=== PATIENT | female | born 1990 | race Hispanic/Latino ===

== ENCOUNTER 2019-11-25 09:43 | Emergency (ER) | payer MEDICAID ==
--- NOTE | 2019-11-25 14:43 | Emergency Department Report ---
ED Female HPI - General Chief complaint: Vaginal Bleeding Stated complaint: 6WKS PREG/BLEEDING/CRAMPING Time Seen by Provider: 11/25/19 13:57 Source: patient Mode of arrival: Ambulatory Limitations: No Limitations - History of Present Illness Initial comments: This is a 29-year-old female who presents to the emergency room with lower abdominal cramping and vaginal bleeding for 2 weeks. Last menstrual period 10/12/2019, . Patient states the bleeding initially started off as hematuria and progressed to mild bleeding which required use of menstrual period. Patient admits to taking a Plan B 2 weeks prior to diagnosis of . Patient states she found out she was on 11/10/2018 in attempts to get control. She denies urinary frequency, urgency, dysuria, vaginal discharge, back pain, lightheadedness, chest pain, shortness of breath, or palpitations. MD Complaint: vaginal bleeding Onset/Timin -: week(s) Location: suprapubic Radiation: non-radiating Severity: moderate Severity scale (0 -10): 4 Quality: cramping Consistency: constant Improves with: none Worsens with: none Are you Now?: Yes Last Menstrual Period: 10/12/19 EDC: 07/18/20 Associated Symptoms: vaginal bleeding, abdominal pain, hematuria. denies: vaginal discharge, nausea/vomiting, fever/chills, loss of appetite, seizure, shortness of breath, syncope, weakness - Related Data Sexually active: Yes : 1 Para: 0 A: 0 Allergies Allergy/AdvReac Type Severity Reaction Status Date / Time No Known Allergies Allergy Unverified 11/25/19 10:49 ED Review of Systems ROS: Stated complaint: 6WKS PREG/BLEEDING/CRAMPING Other details as noted in HPI Constitutional: denies: chills, fever Respiratory: denies: cough, shortness of breath, wheezing Cardiovascular: denies: chest pain, palpitations Gastrointestinal: abdominal pain, other. denies: nausea, diarrhea Genitourinary: hematuria, other (vaginal bleeding during ). denies: urgency, dysuria, discharge Musculoskeletal: denies: back pain, joint swelling, arthralgia Skin: denies: rash, lesions Neurological: denies: headache, weakness, paresthesias Psychiatric: denies: anxiety, depression ED Past Medical Hx - Past Medical History Previous Medical History?: No - Surgical History Past Surgical History?: No ED Physical Exam - General Limitations: No Limitations General appearance: alert, in no apparent distress, obese - Respiratory Respiratory exam: Present: normal lung sounds bilaterally. Absent: respiratory distress - Cardiovascular Cardiovascular Exam: Present: regular rate, normal rhythm. Absent: systolic murmur, diastolic murmur, rubs, gallop - GI/Abdominal GI/Abdominal exam: Present: soft, normal bowel sounds. Absent: distended, tenderness, guarding, rebound, rigid - Extremities Exam Extremities exam: Present: normal inspection - Back Exam Back exam: Absent: CVA tenderness (R), CVA tenderness (L) - Neurological Exam Neurological exam: Present: alert, oriented X3, normal gait - Psychiatric Psychiatric exam: Present: normal affect, normal mood - Skin Skin exam: Present: warm, dry, intact, normal color. Absent: rash ED Course Vital Signs 11/25/19 10:15 Temperature 97.8 F Pulse Rate 74 Respiratory 18 Rate Blood Pressure 125/74 O2 Sat by Pulse 100 Oximetry ED Medical Decision Making - Lab Data Result diagrams: 11/25/19 15:34 Lab Results 11/25/19 11/25/19 11/25/19 Range/Units 14:46 15:34 15:34 WBC 8.2 (4.5-11.0) K/mm3 RBC 3.98 (3.65-5.03) M/mm3 Hgb 12.8 (10.1-14.3) gm/dl Hct 36.0 (30.3-42.9) % MCV 91 (79-97) fl MCH 32 (28-32) pg MCHC 36 H (30-34) % RDW 13.3 (13.2-15.2) % Plt Count 212 (140-440) K/mm3 HCG, Quant 328.8 H (0-4) mIU/mL Urine Color Yellow (Yellow) Urine Turbidity Clear (Clear) Urine pH 7.0 (5.0-7.0) Ur Specific [place] 1.003 (1.003-1.030) Urine Protein <15 mg/dl (Negative) mg/dL Urine Glucose (UA) Neg (Negative) mg/dL Urine Ketones Neg (Negative) mg/dL Urine Blood Lg (Negative) Urine Nitrite Neg (Negative) Ur Reducing Substances Not Reportable Urine Bilirubin Neg (Negative) Urine Ictotest Not Reportable Urine Urobilinogen < 2.0 (<2.0) mg/dL Ur Leukocyte Esterase Neg (Negative) Urine WBC (Auto) 2.0 (0.0-6.0) /HPF Urine RBC (Auto) 18.0 (0.0-6.0) /HPF U Epithel Cells (Auto) 1.0 (0-13.0) /HPF Urine Bacteria (Auto) 2+ (Negative) /HPF Urine HCG, Qual Positive A (Negative) - Radiology Data Radiology results: report reviewed [facility]TRASOUND HISTORY: , vaginal bleeding, cramping. COMPARISON: None. TECHNIQUE: Transabdominal and transvaginal exam of the pelvis was performed. FINDINGS: Last menstrual period: 10/12/2019. This would equate to an estimated gestational age of 6 weeks and 2 days. The uterus measures up to 9.9 x 3.9 x 6.1 cm. The endometrial stripe is thickened measuring up to 17.4 mm. No evidence of intrauterine is identified. The right ovary measures 2.7 x 1.4 x 2 cm and contains a 1.1 cm benign-appearing cyst versus follicle. The left ovary measures 2.5 x 1.5 x 2.7 cm. No evidence of discrete left ovarian lesion. No free fluid within the visualized pelvis. IMPRESSION: No evidence of intrauterine . It is unclear if this is due to early , aborted , or ectopic . Recommend correlation with serial beta hCG and short follow-up pelvic ultrasound as clinically indicated. - Medical Decision Making This is a 29-year-old female who presents with vaginal bleeding and abdominal cramping with . Vitals are stable and patient in no acute distress. Labs and OB ultrasound obtained. No evidence of intrauterine . It is unclear if this is due to early , aborted , or ectopic . Recommend correlation with serial beta hCG and short follow-up pelvic ultrasound as clinically indicated. Instructed to have repeat hormone levels in 48 hours. Referral to [facility] for continued care. Given strict bed rest instructions. Patient discharged home. Critical care attestation.: If time is entered above; I have spent that time in minutes in the direct care of this critically ill patient, excluding procedure time. ED Disposition Clinical Impression: Vaginal bleeding during , Threatened Disposition: DC-01 TO HOME OR SELFCARE Is pt being admited?: No Condition: Stable Instructions: Threatened Miscarriage (ED) Additional Instructions: Have repeat of your blood hCG levels in 2 days. You hCG level was 328.8 on today's visit. Follow up with an [facility] or return to the emergency room for repeat labs in 2 days. I have provided a list of [facility] for follow-up in the referrals list below. Referrals: [facility] [Provider Group] - 3-5 Days [facility], [facility] [Provider Group] - 3-5 Days [facility] [Provider Group] - 3-5 Days Forms: Work/School Release Form(ED), Accompanied Note Time of Disposition: 17:58
[2019-11-25 16:11] LABS: Hemoglobin 12.8 gm/dl (10.1-14.3); Mean Corpuscular HGB Conc 36 % (30-34); Mean Corpuscular Volume 91 fl (79-97); Platelet Count 212 K/mm3 (140-440); Red Blood Count 3.98 M/mm3 (3.65-5.03); Red Cell Distribution Width 13.3 % (13.2-15.2)
--- NOTE | 2019-11-25 16:15 | Ultrasound Report ---
[facility]ST[facility] ULTRASOUND HISTORY: , vaginal bleeding, cramping. COMPARISON: None. TECHNIQUE: Transabdominal and transvaginal exam of the pelvis was performed. FINDINGS: Last menstrual period: 10/12/2019. This would equate to an estimated gestational age of 6 weeks and 2 days. The uterus measures up to 9.9 x 3.9 x 6.1 cm. The endometrial stripe is thickened measuring up to 17. 4 mm. No evidence of intrauterine is identified. The right ovary measures 2.7 x 1.4 x 2 cm and contains a 1.1 cm benign-appearing cyst versus follicle . The left ovary measures 2.5 x 1.5 x 2.7 cm. No evidence of discrete left ovarian lesion. No free fluid within the visualized pelvis. IMPRESSION: No evidence of intrauterine . It is unclear if this is due to early , aborted pregn ba, or ectopic . Recommend correlation with serial beta hCG and short follow-up pelvic ult rasound as clinically indicated. Signer Name: Chris Rushing MD Signed: 11/25/2019 4:11 PM Workstation Name: [id number]
[2019-11-25 17:45] LABS: Bacteria,Urine 2+ /HPF (Negative); Bilirubin,Urine NEG (Negative); Blood,Urine LG (Negative); Color,Urine Yellow (Yellow); Protein,Urine <15 mg/dL mg/dL (Negative); Urobilinogen,Urine < 2.0 mg/dL (<2.0)
[2019-11-25 17:46] LABS: HCG Qualitative,Urine Positive (Negative)
[2019-11-25 18:05] VITALS: BP 122/74
== END 2019-11-25 18:04 | disposition home or self-care (01) ==
LOC: ED 09:43
DX: O20.0 Threatened abortion (principal); O20.8 Other hemorrhage in early pregnancy; Z3A.01 Less than 8 weeks gestation of pregnancy
CPT/HCPCS: 36415; 76801; 76802; 76817; 81001; 81025; 84702; 85027

== ENCOUNTER 2022-04-27 14:45 | Inpatient (IN) | payer MEDICAID ==
[2022-04-27] MEDS ORDERED: LACTATED RINGERS 1,000 ML ONE (16:18)
[2022-04-27] MEDS ORDERED: miSOPROStol 200 MCG TAB PR PRN (16:23)
[2022-04-27] MEDS ORDERED: LIDOCAINE (2%) 20 MG/1 ML VIAL 20 ML MDV INFILTRATI ONE (16:23)
[2022-04-27] MEDS ORDERED: OXYTOCIN 10 UNIT/1 ML INJ IM PRN (16:23)
[2022-04-27] MEDS ORDERED: METHYLERGONOVINE MALEATE 0.2 MG/ML VIAL IM PRN (16:23)
[2022-04-27] MEDS ORDERED: LOPERAMIDE 2 MG CAP PO PRN (16:23)
[2022-04-27] MEDS ORDERED: TERBUTALINE 1 MG/1 ML INJ SUB-Q PRN (16:23)
[2022-04-27] MEDS ORDERED: ONDANSETRON 4 MG/2 ML INJ IV PRN (16:23)
[2022-04-27] MEDS ORDERED: CARBOPROST TROMETHAMINE 250 MCG/1 ML INJ IM PRN (16:23)
[2022-04-27] MEDS ORDERED: ePHEDrine SULFATE 50 MG/1 ML INJ IV PRN (16:23)
[2022-04-27] MEDS ORDERED: MINERAL OIL 30 ML ORAL LIQD PO PRN (16:23)
[2022-04-27] MEDS: LACTATED RINGERS 1,000 ML IV SCH (16:30)
--- NOTE | 2022-04-27 16:33 | History and Physical Report ---
History of Present Illness Date of examination: 04/27/22 Date of admission: 04/27/2022 Chief complaint: Presents for a scheduled induction of labor for morbid obesity and GDM A1 History of present illness: Early entry to care; co-managed with [facility] due morbid obesity and GDM. Past History Past Medical History: no pertinent history Past Surgical History: no surgical history Family/Genetic History: heart disease (PGF), hypertension (PGF) Social history: no significant social history, single - Obstetrical History Expected Date of Delivery: 05/06/22 Actual Gestation: 38 Week(s) 5 Day(s) : 2 Spontaneous Abortions: 1 Medications and Allergies Allergies Allergy/AdvReac Type Severity Reaction Status Date / Time No Known Allergies Allergy Unverified 11/25/19 10:49 Active Meds: Active Medications Carboprost Tromethamine (Carboprost Tromethamine 250 Mcg/1 Ml Inj) 250 mcg IM ONCE PRN PRN Reason: Uterine Bleeding Ephedrine Sulfate (Ephedrine Sulfate 50 Mg/1 Ml Inj) 10 mg IV Q2M PRN PRN Reason: Hypotension Lactated Ringer's (Lactated Ringers) 1,000 mls @ 125 mls/hr IV DIRECT BARRIE Oxytocin/Sodium Chloride (Pitocin/Ns 30 Unit/500ml) 30 units in 500 mls @ 40 mls/hr IV TITR BARRIE; Protocol Ampicillin Sodium (Ampicillin/Ns 2 Gm/100 Ml) 2 gm in 100 mls @ 100 mls/hr IV ONCE ONE; Protocol Stop: 04/27/22 17:22 Ampicillin Sodium (Ampicillin/Ns 1 Gm/50 Ml) 1 gm in 50 mls @ 100 mls/hr IV Q4H BARRIE; Protocol Lidocaine (Lidocaine (2%) 20 Mg/1 Ml Vial 20 Ml Mdv) 20 ml INFILTRATI ONCE ONE Stop: 04/27/22 16:24 Loperamide HCl (Loperamide 2 Mg Cap) 2 mg PO ONCE PRN PRN Reason: give with Hemabate Methylergonovine Maleate (Methylergonovine Maleate 0.2 Mg/Ml Vial) 0.2 mg IM ONCE PRN PRN Reason: Uterine Bleeding Mineral Oil (Mineral Oil 30 Ml Oral Liqd) 30 ml PO QHS PRN PRN Reason: Constipation Misoprostol (Misoprostol 200 Mcg Tab) 800 mcg HI ONCE PRN PRN Reason: Uterine Bleeding Misoprostol (Misoprostol 25 Mcg Tab) 25 mcg VAGINAL ONCE ONE Stop: 04/27/22 16:24 Ondansetron HCl (Ondansetron 4 Mg/2 Ml Inj) 4 mg IV Q8H PRN PRN Reason: Nausea And Vomiting Oxytocin (Oxytocin 10 Unit/1 Ml Inj) 10 unit IM ONCE PRN PRN Reason: Uterine Bleeding Terbutaline Sulfate (Terbutaline 1 Mg/1 Ml Inj) 0.25 mg SUB-Q ONCE PRN PRN Reason: Hyperstimulation/Hypertonicity Review of Systems All systems: negative - Vital Signs Vital signs: Vital Signs Pulse Pulse Ox 69 80 L 04/27/22 16:17 04/27/22 16:17 Temp Pulse Resp BP Pulse Ox 113 H 115/66 92 04/27/22 16:27 04/27/22 16:25 04/27/22 16:27 - Physical Exam Breasts: Positive: normal Cardiovascular: Regular rate Lungs: Positive: Clear to auscultation, Normal air movement Abdomen: Positive: normal appearance, soft, normal bowel sounds Genitourinary (Female): Positive: normal external genitalia, normal perenium Vagina: Positive: normal moisture Uterus: Positive: enlarged Anus/Rectum: Positive: normal perianal skin Extremities: Positive: normal - Obstetrical FHR: category 1 Uterine Contraction Monitor Mode: External Cervical Dilatation: 0.5 Cervical Effacement Percentage: 30 station: -4 Uterine Contraction Pattern: Irregular Uterine Tone Measurement Phase: Resting Uterine Contraction Intensity: Mild Results All other labs normal. Assessment and Plan A: IUP @ 38 5/7 Weeks Category I Tracing GDM A1 Morbid Maternal obesity GBS Positive P: Admit to L&D Per Routine Orders Accuchecks q 4 hours Cytotec 25mcg intravaginally q 4 hours GBS Prophylaxis
[2022-04-27] MEDS ORDERED: OXYTOCIN DRIP 30 UNITS/500 ML BAG IV SCH (17:00)
[2022-04-27] MEDS ORDERED: AMPICILLIN/NS 2 GM/100 ML 2 GM/100 ML BAG IV ONE (17:00)
[2022-04-27 17:20] LABS: Hemoglobin 11.5 gm/dl (10.1-14.3); Mean Corpuscular HGB Conc 35 % (30-34); Mean Corpuscular Volume 89 fl (79-97); Platelet Count 150 K/mm3 (140-440); Red Blood Count 3.73 M/mm3 (3.65-5.03); Red Cell Distribution Width 14.8 % (13.2-15.2)
[2022-04-27] MEDS: miSOPROStol 25 MCG TAB VG SCH (17:37)
[2022-04-27] MEDS ORDERED: CYCLOBENZAPRINE 10 MG TAB PO ONE (23:48)
[2022-04-28] MEDS: LACTATED RINGERS 1,000 ML IV SCH ×2 (00:23→14:55)
--- NOTE | 2022-04-28 01:32 | Ultrasound Report ---
ULTRASOUND OBSTETRIC INDICATION / CLINICAL INFORMATION: GESTATIONAL DM, MORBID OBESITY. Clinical Gestational Age (GA) in weeks, days: 38, 6 TECHNIQUE: Transabdominal. COMPARISON: None available. FINDINGS: Single intrauterine . Biparietal Diameter = 10.2 cm = 42, 0 weeks, days Head Circumference = 33.3 cm = 38, 0 weeks, days Abdominal Circumference = 32.7 cm = 36, 4 weeks, days Femur Length = 7.0 cm = 35, 6 weeks, days Average Ultrasound Age (AUA) = 38, 1 weeks, days Heart Rate: 115 beats per minute. Estimated Weight in grams (if calculated): 3135 Estimated Weight Growth Percentile (if calculated): 27 Position: cephalic. Placenta: Right lateral and free of the os. Amniotic Fluid Volume: normal Amniotic Fluid Index (JERMAIN) in cm (if calculated): 9.2. IMPRESSION: 1. Single, living intrauterine with estimated sonographic age of 38, 1 weeks, days. 2. No significant sonographic abnormality. Signer Name: Paulino Greene DO Signed: 04/28/2022 1:27 AM Workstation Name: [id number]
[2022-04-28] MEDS: AMPICILLIN/NS 1 GM/50 ML 1 GM/50 ML BAG IV SCH ×5 (05:17→15:03)
[2022-04-28] MEDS: miSOPROStol 25 MCG TAB VG SCH (05:18)
[2022-04-28] MEDS: ACETAMINOPHEN 500 MG TAB PO PRN (09:34)
[2022-04-28] MEDS: miSOPROStol 25 MCG TAB VG PRN (09:35)
--- NOTE | 2022-04-28 09:52 | Event Note ---
Date: 04/28/22 S: Here for induction of labor for GDM, obesity O: CAT I tracing, irregular contractions, cervix on last exam was -/-2 A: Induction of labor P: Will increase Cytotec to 50 MCG every 4 hrs as tolerated
[2022-04-28] MEDS ORDERED: DINOPROSTONE 10 MG VAG SUPP VG ONE (21:00)
[2022-04-29] MEDS: miSOPROStol 25 MCG TAB VG PRN (03:56)
[2022-04-29] MEDS: LACTATED RINGERS 1,000 ML IV SCH (03:59)
[2022-04-29] MEDS: ACETAMINOPHEN 500 MG TAB PO PRN (05:31)
[2022-04-29] MEDS ORDERED: BUTORPHANOL 2 MG/1 ML INJ IV PRN (09:28)
[2022-04-29] MEDS ORDERED: ACETAMINOPHEN 325 MG TAB PO PRN (09:28)
[2022-04-29] MEDS ORDERED: fentaNYL 100 MCG/2 ML INJ IV PRN (09:28)
--- NOTE | 2022-04-29 11:33 | Event Note ---
Date: 04/29/22 S: Feeling a few contractions O: VE /-3, CAT I tracing A: 39.0 weeks induction of labor P: Resume cytotec 50 MCG
[2022-04-29] MEDS: miSOPROStol 25 MCG TAB PO PRN ×2 (13:56→17:59)
[2022-04-29] MEDS: BUTORPHANOL 2 MG/1 ML INJ IV PRN (22:53)
[2022-04-29] MEDS ORDERED: DINOPROSTONE 10 MG VAG SUPP VG ONE (22:59)
--- NOTE | 2022-04-30 00:04 | Progress Note ---
Assessment and Plan A IUP @ 39 weeks GDM A1 -FSG wnl Morbid Obesity IOL - S/p cytotec and cervidil P Cervidil placed Anticipate Subjective - Subjective Date of service: 04/30/22 Patient reports: contractions Objective - Vital Signs Vital Signs: Vital Signs - 12hr 04/29/22 04/29/22 04/29/22 12:04 12:09 12:14 Temperature Pulse Rate 82 75 90 Respiratory Rate Blood Pressure O2 Sat by Pulse 100 100 93 Oximetry O2 Sat by Pulse Oximetry [ Bilateral] 04/29/22 04/29/22 04/29/22 12:19 12:24 12:29 Temperature Pulse Rate 82 90 74 Respiratory Rate Blood Pressure O2 Sat by Pulse 100 100 97 Oximetry O2 Sat by Pulse Oximetry [ Bilateral] 04/29/22 04/29/22 04/29/22 12:34 12:38 12:39 Temperature Pulse Rate 77 87 71 Respiratory Rate Blood Pressure O2 Sat by Pulse 100 92 100 Oximetry O2 Sat by Pulse Oximetry [ Bilateral] 04/29/22 04/29/22 04/29/22 13:13 13:14 13:18 Temperature Pulse Rate 65 66 Respiratory Rate Blood Pressure 115/60 O2 Sat by Pulse 76 L 76 L 100 Oximetry O2 Sat by Pulse Oximetry [ Bilateral] 04/29/22 04/29/22 04/29/22 13:23 13:28 13:33 Temperature Pulse Rate 70 70 76 Respiratory Rate Blood Pressure O2 Sat by Pulse 100 100 100 Oximetry O2 Sat by Pulse Oximetry [ Bilateral] 04/29/22 04/29/22 04/29/22 13:38 13:43 13:48 Temperature Pulse Rate 66 63 68 Respiratory Rate Blood Pressure O2 Sat by Pulse 99 100 99 Oximetry O2 Sat by Pulse Oximetry [ Bilateral] 04/29/22 04/29/22 04/29/22 13:53 13:58 14:03 Temperature Pulse Rate 60 77 62 Respiratory Rate Blood Pressure O2 Sat by Pulse 99 100 99 Oximetry O2 Sat by Pulse Oximetry [ Bilateral] 04/29/22 04/29/22 04/29/22 14:08 14:17 14:22 Temperature Pulse Rate 60 73 67 Respiratory Rate Blood Pressure O2 Sat by Pulse 99 100 100 Oximetry O2 Sat by Pulse Oximetry [ Bilateral] 07/02/22 07/02/22 07/02/22 14:24 14:27 14:32 Temperature Pulse Rate 79 68 77 Respiratory Rate Blood Pressure O2 Sat by Pulse 92 100 100 Oximetry O2 Sat by Pulse Oximetry [ Bilateral] 04/29/22 04/29/22 04/29/22 14:37 14:42 14:47 Temperature Pulse Rate 71 62 70 Respiratory Rate Blood Pressure O2 Sat by Pulse 100 100 100 Oximetry O2 Sat by Pulse Oximetry [ Bilateral] 04/29/22 04/29/22 04/29/22 14:52 14:57 15:02 Temperature Pulse Rate 61 65 85 Respiratory Rate Blood Pressure O2 Sat by Pulse 100 100 100 Oximetry O2 Sat by Pulse Oximetry [ Bilateral] 04/29/22 04/29/22 04/29/22 15:10 15:15 15:20 Temperature Pulse Rate 80 73 71 Respiratory Rate Blood Pressure O2 Sat by Pulse 100 99 100 Oximetry O2 Sat by Pulse Oximetry [ Bilateral] 04/29/22 04/29/22 04/29/22 15:25 15:30 15:34 Temperature Pulse Rate 69 69 Respiratory Rate Blood Pressure O2 Sat by Pulse 100 100 78 L Oximetry O2 Sat by Pulse Oximetry [ Bilateral] 04/29/22 04/29/22 04/29/22 15:35 15:40 15:45 Temperature Pulse Rate 59 L 65 58 L Respiratory Rate Blood Pressure O2 Sat by Pulse 100 97 100 Oximetry O2 Sat by Pulse Oximetry [ Bilateral] 04/29/22 04/29/22 04/29/22 15:50 15:55 15:57 Temperature Pulse Rate 60 54 L 67 Respiratory Rate Blood Pressure O2 Sat by Pulse 100 99 86 Oximetry O2 Sat by Pulse Oximetry [ Bilateral] 04/29/22 04/29/22 04/29/22 16:00 16:05 16:10 Temperature Pulse Rate 62 58 L 58 L Respiratory Rate Blood Pressure O2 Sat by Pulse 100 100 100 Oximetry O2 Sat by Pulse Oximetry [ Bilateral] 04/29/22 04/29/22 04/29/22 16:15 16:17 16:24 Temperature Pulse Rate 60 66 57 L Respiratory Rate Blood Pressure 116/56 O2 Sat by Pulse 100 90 Oximetry O2 Sat by Pulse Oximetry [ Bilateral] 04/29/22 04/29/22 04/29/22 16:29 16:34 16:39 Temperature Pulse Rate 66 65 68 Respiratory Rate Blood Pressure O2 Sat by Pulse 100 100 96 Oximetry O2 Sat by Pulse Oximetry [ Bilateral] 04/29/22 04/29/22 04/29/22 16:41 16:44 16:45 Temperature 98.1 F Pulse Rate 71 68 Respiratory 17 Rate Blood Pressure O2 Sat by Pulse 85 100 Oximetry O2 Sat by Pulse Oximetry [ Bilateral] 04/29/22 04/29/22 04/29/22 16:50 16:51 16:54 Temperature Pulse Rate 70 71 93 H Respiratory Rate Blood Pressure O2 Sat by Pulse 100 87 95 Oximetry O2 Sat by Pulse Oximetry [ Bilateral] 04/29/22 04/29/22 04/29/22 16:59 17:05 17:09 Temperature Pulse Rate 63 65 78 Respiratory Rate Blood Pressure O2 Sat by Pulse 100 100 100 Oximetry O2 Sat by Pulse Oximetry [ Bilateral] 04/29/22 04/29/22 04/29/22 17:15 17:20 17:24 Temperature Pulse Rate 73 66 70 Respiratory Rate Blood Pressure O2 Sat by Pulse 100 100 100 Oximetry O2 Sat by Pulse Oximetry [ Bilateral] 04/29/22 04/29/22 04/29/22 17:30 17:38 17:43 Temperature Pulse Rate 70 90 84 Respiratory Rate Blood Pressure O2 Sat by Pulse 100 85 100 Oximetry O2 Sat by Pulse Oximetry [ Bilateral] 04/29/22 04/29/22 04/29/22 17:47 17:53 17:58 Temperature Pulse Rate 74 66 79 Respiratory Rate Blood Pressure O2 Sat by Pulse 98 100 100 Oximetry O2 Sat by Pulse Oximetry [ Bilateral] 04/29/22 04/29/22 04/29/22 18:17 18:22 18:27 Temperature Pulse Rate 67 63 64 Respiratory Rate Blood Pressure O2 Sat by Pulse 100 100 100 Oximetry O2 Sat by Pulse Oximetry [ Bilateral] 04/29/22 04/29/22 04/29/22 18:32 18:37 18:42 Temperature Pulse Rate 67 63 69 Respiratory Rate Blood Pressure O2 Sat by Pulse 98 99 99 Oximetry O2 Sat by Pulse Oximetry [ Bilateral] 04/29/22 04/29/22 04/29/22 18:47 18:55 19:00 Temperature Pulse Rate 69 72 67 Respiratory Rate Blood Pressure O2 Sat by Pulse 100 100 97 Oximetry O2 Sat by Pulse Oximetry [ Bilateral] 07/02/22 07/02/22 07/02/22 19:05 19:10 19:13 Temperature Pulse Rate 62 75 Respiratory Rate Blood Pressure O2 Sat by Pulse 99 100 Oximetry O2 Sat by Pulse 100 Oximetry [ Bilateral] 04/29/22 04/29/22 04/29/22 19:15 19:18 19:20 Temperature Pulse Rate 64 59 L 67 Respiratory Rate Blood Pressure 122/78 O2 Sat by Pulse 100 100 Oximetry O2 Sat by Pulse Oximetry [ Bilateral] 04/29/22 04/29/22 04/29/22 19:25 19:30 19:31 Temperature Pulse Rate 59 L 68 66 Respiratory Rate Blood Pressure O2 Sat by Pulse 100 100 85 Oximetry O2 Sat by Pulse Oximetry [ Bilateral] 04/29/22 04/29/22 04/29/22 19:35 19:43 19:48 Temperature Pulse Rate 65 70 69 Respiratory Rate Blood Pressure O2 Sat by Pulse 100 98 100 Oximetry O2 Sat by Pulse Oximetry [ Bilateral] 04/29/22 04/29/22 04/29/22 19:53 19:58 19:59 Temperature Pulse Rate 67 64 79 Respiratory Rate Blood Pressure O2 Sat by Pulse 100 100 86 Oximetry O2 Sat by Pulse Oximetry [ Bilateral] 04/29/22 04/29/22 04/29/22 20:07 20:12 20:17 Temperature Pulse Rate 65 68 61 Respiratory Rate Blood Pressure O2 Sat by Pulse 92 99 80 L Oximetry O2 Sat by Pulse Oximetry [ Bilateral] 04/29/22 04/29/22 04/29/22 20:22 20:27 20:32 Temperature Pulse Rate 66 63 64 Respiratory Rate Blood Pressure O2 Sat by Pulse 100 100 100 Oximetry O2 Sat by Pulse Oximetry [ Bilateral] 04/29/22 04/29/22 04/29/22 20:37 20:47 20:52 Temperature Pulse Rate 65 69 88 Respiratory Rate Blood Pressure O2 Sat by Pulse 100 100 100 Oximetry O2 Sat by Pulse Oximetry [ Bilateral] 04/29/22 04/29/22 04/29/22 20:57 21:02 21:07 Temperature Pulse Rate 77 92 H 86 Respiratory Rate Blood Pressure O2 Sat by Pulse 100 99 100 Oximetry O2 Sat by Pulse Oximetry [ Bilateral] 04/29/22 04/29/22 04/29/22 21:12 21:17 21:22 Temperature Pulse Rate 59 L 77 75 Respiratory Rate Blood Pressure O2 Sat by Pulse 100 99 100 Oximetry O2 Sat by Pulse Oximetry [ Bilateral] 04/29/22 04/29/22 04/29/22 21:27 21:32 21:37 Temperature Pulse Rate 83 85 83 Respiratory Rate Blood Pressure O2 Sat by Pulse 100 99 100 Oximetry O2 Sat by Pulse Oximetry [ Bilateral] 04/29/22 04/29/22 04/29/22 21:42 21:47 21:52 Temperature Pulse Rate 77 93 H 86 Respiratory Rate Blood Pressure O2 Sat by Pulse 100 99 100 Oximetry O2 Sat by Pulse Oximetry [ Bilateral] 04/29/22 04/29/22 04/29/22 22:01 22:02 22:07 Temperature Pulse Rate 99 H 67 73 Respiratory Rate Blood Pressure O2 Sat by Pulse 94 100 100 Oximetry O2 Sat by Pulse Oximetry [ Bilateral] 04/29/22 04/29/22 04/29/22 22:12 22:17 22:18 Temperature Pulse Rate 68 70 75 Respiratory Rate Blood Pressure O2 Sat by Pulse 100 99 87 Oximetry O2 Sat by Pulse Oximetry [ Bilateral] 04/29/22 04/29/22 04/29/22 22:22 22:27 22:32 Temperature Pulse Rate 66 68 69 Respiratory Rate Blood Pressure O2 Sat by Pulse 100 100 100 Oximetry O2 Sat by Pulse Oximetry [ Bilateral] 04/29/22 04/29/22 04/29/22 22:37 22:42 22:47 Temperature Pulse Rate 63 67 73 Respiratory Rate Blood Pressure O2 Sat by Pulse 100 100 100 Oximetry O2 Sat by Pulse Oximetry [ Bilateral] 04/29/22 04/29/22 04/29/22 22:48 22:52 22:57 Temperature Pulse Rate 63 65 72 Respiratory Rate Blood Pressure O2 Sat by Pulse 93 100 98 Oximetry O2 Sat by Pulse Oximetry [ Bilateral] 04/29/22 04/29/22 04/29/22 23:02 23:07 23:12 Temperature Pulse Rate 78 70 72 Respiratory Rate Blood Pressure O2 Sat by Pulse 96 98 98 Oximetry O2 Sat by Pulse Oximetry [ Bilateral] 04/29/22 04/29/22 04/29/22 23:17 23:22 23:33 Temperature Pulse Rate 66 69 65 Respiratory Rate Blood Pressure O2 Sat by Pulse 98 98 98 Oximetry O2 Sat by Pulse Oximetry [ Bilateral] 04/29/22 04/29/22 04/29/22 23:38 23:43 23:48 Temperature Pulse Rate 58 L 48 L 57 L Respiratory Rate Blood Pressure O2 Sat by Pulse 97 99 98 Oximetry O2 Sat by Pulse Oximetry [ Bilateral] 04/29/22 04/29/22 23:53 23:58 Temperature Pulse Rate 60 59 L Respiratory Rate Blood Pressure O2 Sat by Pulse 98 99 Oximetry O2 Sat by Pulse Oximetry [ Bilateral] - Exam FHR: category 1 Uterine Contraction Monitor Mode: External Cervical Dilatation: 1 Cervical Effacement Percentage: 0 (Thick) station: high Uterine Contraction Pattern: Irregular - Labs Labs: Abnormal Labs 04/27/22 04/29/22 04/29/22 16:30 10:07 20:53 MCHC 35 H POC Glucose 112 H 65 L Laboratory Results - last 24 hr 04/29/22 04/29/22 04/29/22 00:12 05:41 10:07 POC Glucose 88 82 112 H 04/29/22 04/29/22 15:06 20:53 POC Glucose 70 65 L
[2022-04-30] MEDS ORDERED: ZOLPIDEM 5 MG TAB PO ONE (01:44)
[2022-04-30] MEDS: BUTORPHANOL 2 MG/1 ML INJ IV PRN (03:58)
[2022-04-30 09:48] VITALS: BP 107/62
--- NOTE | 2022-04-30 10:39 | Event Note ---
Date: 04/30/22 S: Having a few contractions, but they have slowed down O: Reactive NST, Cervix 1/ long/-3, Irregular contractions She has had 6 doses of cytotec and one cervadil with poor response. A: 39 weeks with GDM, obesity P: Discussed with her and her regarding stopping the induction due to poor response to induction agents. She and her baby are stable and the induction will be rescheduled for May 07. Labor precautions given. F/U in office on Dr. Alcocer agreed with plan of care.
--- NOTE | 2022-04-30 10:44 | Discharge Summary ---
Providers - Providers Date of Admission: 04/29/22 09:34 Date of discharge: 04/30/22 Attending physician: SALOMÓN BARCLAY Primary care physician: SALOMÓN BARCLAY Hospitalization Reason for admission: induction of labor, other Delivery: other (induction stopped and rescheduled for May 08) Discharge diagnosis: other (39 weeks- induction stopped and rescheduled) Hospital course: See Progress note Disposition: HOME / SELF CARE / HOMELESS Plan - Provider Discharge Summary Activity: routine Diet: other (diabetic diet) Additional instructions: [] Smoking cessation referral if applicable(refer to patient education folder for contact #) [] Refer to [facility]'s [facility] Booklet Call your doctor immediately for: * Fever > 100.5 * Heavy vaginal bleeding ( >1 pad per hour) * Severe persistent headache * Shortness of breath * Reddened, hot, painful area to leg or breast * Drainage or odor from incision. * Keep incision clean and dry at all times and follow doctor's instructions regarding bathing/showering - Follow up plan Follow up: SALOMÓN BARCLAY MD [Primary Care Provider] - 05/04/22
== END 2022-04-30 11:00 | disposition home or self-care (01) | DRG 781 ==
LOC: TRG 14:45 → LD 14:45 → TRG 04-29 09:34 → LD 04-29 09:34
PROVIDERS: ADMIT Obstetrics & Gynecology; ATTEND Obstetrics & Gynecology
PROC: 3E0P7VZ Introduction of Hormone into Female Reproductive, Via Natural or Artificial Opening (ICD-10-PCS; principal; 2022-04-29)
DX: O24.419 Gestational diabetes mellitus in pregnancy, unspecified control (principal); E66.01 Morbid (severe) obesity due to excess calories; Z3A.38 38 weeks gestation of pregnancy; O99.820 Streptococcus B carrier state complicating pregnancy; O99.213 Obesity complicating pregnancy, third trimester; Z20.822 Contact with and (suspected) exposure to COVID-19
CPT/HCPCS: 36415; 59200; 76816; 82962; 83036; 85014; 85018; 85027; 86850; 86900; 86901; 96360; 96372; G0378; J0290; J0595; J7120

== ENCOUNTER 2022-05-07 20:19 | Inpatient (IN) | payer MEDICAID ==
[2022-05-07] MEDS ORDERED: CARBOPROST TROMETHAMINE 250 MCG/1 ML INJ IM PRN (21:26)
[2022-05-07] MEDS ORDERED: miSOPROStol 200 MCG TAB PR PRN (21:26)
[2022-05-07] MEDS ORDERED: ePHEDrine SULFATE 50 MG/1 ML INJ IV PRN (21:26)
[2022-05-07] MEDS ORDERED: MINERAL OIL 30 ML ORAL LIQD PO PRN (21:26)
[2022-05-07] MEDS ORDERED: LIDOCAINE (2%) 20 MG/1 ML VIAL 20 ML MDV INFILTRATI ONE (21:26)
[2022-05-07] MEDS ORDERED: LOPERAMIDE 2 MG CAP PO PRN (21:26)
[2022-05-07] MEDS ORDERED: ONDANSETRON 4 MG/2 ML INJ IV PRN (21:26)
[2022-05-07] MEDS ORDERED: OXYTOCIN 10 UNIT/1 ML INJ IM PRN (21:26)
[2022-05-07] MEDS ORDERED: TERBUTALINE 1 MG/1 ML INJ SUB-Q PRN (21:26)
[2022-05-07] MEDS ORDERED: ACETAMINOPHEN 325 MG TAB PO PRN (21:26)
[2022-05-07] MEDS ORDERED: METHYLERGONOVINE MALEATE 0.2 MG/ML VIAL IM PRN (21:26)
[2022-05-07] MEDS ORDERED: BUTORPHANOL 2 MG/1 ML INJ IV PRN (21:26)
[2022-05-07] MEDS ORDERED: OXYTOCIN DRIP 30 UNITS/500 ML BAG IV SCH ×2 (22:00)
[2022-05-07] MEDS ORDERED: DINOPROSTONE 10 MG VAG SUPP VG ONE (22:15)
[2022-05-07 22:32] LABS: Hematocrit 34.3 % (30.3-42.9); Hemoglobin 11.3 gm/dl (10.1-14.3); Mean Corpuscular HGB Conc 33 % (30-34); Mean Corpuscular Volume 90 fl (79-97); Platelet Count 154 K/mm3 (140-440); Red Cell Distribution Width 15.3 % (13.2-15.2)
[2022-05-07] MEDS: LACTATED RINGERS 1,000 ML IV SCH (23:12)
[2022-05-08] MEDS ORDERED: AMPICILLIN/NS 1 GM/50 ML 1 GM/50 ML BAG IV SCH (02:00)
--- NOTE | 2022-05-08 13:14 | Ultrasound Report ---
ULTRASOUND OBSTETRIC LIMITED INDICATION / CLINICAL INFORMATION: presentation. Clinical Gestational Age (GA) in weeks, days: 40, 2 TECHNIQUE: Transabdominal. COMPARISON: None available. FINDINGS: HEART RATE (beats per minute): 116 PRESENTATION: Cephalic. ADDITIONAL FINDINGS: None. IMPRESSION: 1. No significant abnormality. Signer Name: Paulino Greene DO Signed: 05/08/2022 1:09 PM Workstation Name: [id number]
[2022-05-08] MEDS: miSOPROStol 25 MCG TAB PO SCH ×3 (14:20→22:19)
[2022-05-08] MEDS: LACTATED RINGERS 1,000 ML IV SCH (18:10)
--- NOTE | 2022-05-08 19:13 | Progress Note ---
Assessment and Plan A: HD2@40.21WK GESTATION IOL FOR GDM, MORBID OBESITY CAT 1 TRACING GBS POSITIVE CERVIDIL REMOVED BY CNM @1010 P: CONTINUE RAFAELA /EFM MONITORING START CYTOTEC SL Q4HR [id number] CONTINUE BS MONITORING Subjective - Subjective Date of service: 05/08/22 (1010) Principal diagnosis: GDM, MO, GBS POS Patient reports: new complaints, movement normal Objective - Vital Signs Vital Signs: Vital Signs - 12hr 05/08/22 05/08/22 05/08/22 06:51 06:56 07:01 Pulse Rate 74 83 66 Blood Pressure O2 Sat by Pulse 98 100 99 Oximetry O2 Sat by Pulse Oximetry [ Posterior Bilateral Throughout] 05/08/22 05/08/22 05/08/22 07:06 07:11 07:14 Pulse Rate 71 72 68 Blood Pressure 111/71 O2 Sat by Pulse 100 99 Oximetry O2 Sat by Pulse Oximetry [ Posterior Bilateral Throughout] 05/08/22 05/08/22 05/08/22 07:16 07:21 07:26 Pulse Rate 63 63 70 Blood Pressure O2 Sat by Pulse 100 99 99 Oximetry O2 Sat by Pulse Oximetry [ Posterior Bilateral Throughout] 05/08/22 05/08/22 05/08/22 07:31 07:36 07:41 Pulse Rate 63 63 69 Blood Pressure O2 Sat by Pulse 99 98 99 Oximetry O2 Sat by Pulse Oximetry [ Posterior Bilateral Throughout] 05/08/22 05/08/22 05/08/22 07:46 07:51 07:56 Pulse Rate 56 L 62 59 L Blood Pressure O2 Sat by Pulse 99 98 99 Oximetry O2 Sat by Pulse Oximetry [ Posterior Bilateral Throughout] 05/08/22 05/08/22 05/08/22 08:01 08:06 08:10 Pulse Rate 91 H 78 Blood Pressure O2 Sat by Pulse 98 99 Oximetry O2 Sat by Pulse 98 Oximetry [ Posterior Bilateral Throughout] 05/08/22 05/08/22 05/08/22 08:11 08:13 08:16 Pulse Rate 83 64 83 Blood Pressure 123/74 O2 Sat by Pulse 99 100 Oximetry O2 Sat by Pulse Oximetry [ Posterior Bilateral Throughout] 05/08/22 05/08/22 05/08/22 08:21 08:26 08:31 Pulse Rate 67 74 69 Blood Pressure O2 Sat by Pulse 99 100 100 Oximetry O2 Sat by Pulse Oximetry [ Posterior Bilateral Throughout] 05/08/22 05/08/22 05/08/22 08:36 08:41 08:46 Pulse Rate 79 69 68 Blood Pressure O2 Sat by Pulse 100 99 100 Oximetry O2 Sat by Pulse Oximetry [ Posterior Bilateral Throughout] 05/08/22 05/08/22 05/08/22 08:51 08:56 09:01 Pulse Rate 71 73 71 Blood Pressure O2 Sat by Pulse 100 100 100 Oximetry O2 Sat by Pulse Oximetry [ Posterior Bilateral Throughout] 05/08/22 05/08/22 05/08/22 09:06 09:11 09:15 Pulse Rate 67 71 64 Blood Pressure 123/68 O2 Sat by Pulse 99 100 Oximetry O2 Sat by Pulse Oximetry [ Posterior Bilateral Throughout] 05/08/22 05/08/22 05/08/22 09:16 09:21 09:26 Pulse Rate 69 69 72 Blood Pressure O2 Sat by Pulse 100 100 100 Oximetry O2 Sat by Pulse Oximetry [ Posterior Bilateral Throughout] 05/08/22 05/08/22 05/08/22 09:31 09:36 09:41 Pulse Rate 82 84 73 Blood Pressure O2 Sat by Pulse 100 100 100 Oximetry O2 Sat by Pulse Oximetry [ Posterior Bilateral Throughout] 05/08/22 05/08/22 05/08/22 09:46 09:51 09:56 Pulse Rate 77 71 81 Blood Pressure O2 Sat by Pulse 99 99 99 Oximetry O2 Sat by Pulse Oximetry [ Posterior Bilateral Throughout] 05/08/22 05/08/22 05/08/22 10:05 10:10 10:14 Pulse Rate 92 H 85 73 Blood Pressure 123/74 O2 Sat by Pulse 100 100 Oximetry O2 Sat by Pulse Oximetry [ Posterior Bilateral Throughout] 05/08/22 05/08/22 05/08/22 10:15 12:36 12:37 Pulse Rate 75 146 H Blood Pressure O2 Sat by Pulse 100 87 83 L Oximetry O2 Sat by Pulse Oximetry [ Posterior Bilateral Throughout] 05/08/22 05/08/22 05/08/22 12:38 12:41 12:46 Pulse Rate 75 83 72 Blood Pressure 106/55 O2 Sat by Pulse 100 99 Oximetry O2 Sat by Pulse Oximetry [ Posterior Bilateral Throughout] 05/08/22 05/08/22 05/08/22 12:51 12:56 13:01 Pulse Rate 87 78 82 Blood Pressure O2 Sat by Pulse 98 99 100 Oximetry O2 Sat by Pulse Oximetry [ Posterior Bilateral Throughout] 05/08/22 05/08/22 05/08/22 13:06 13:11 13:20 Pulse Rate 76 73 88 Blood Pressure O2 Sat by Pulse 100 98 100 Oximetry O2 Sat by Pulse Oximetry [ Posterior Bilateral Throughout] 05/08/22 05/08/22 05/08/22 13:25 13:30 13:35 Pulse Rate 84 67 73 Blood Pressure O2 Sat by Pulse 100 100 100 Oximetry O2 Sat by Pulse Oximetry [ Posterior Bilateral Throughout] 05/08/22 05/08/22 05/08/22 13:38 13:40 13:45 Pulse Rate 70 69 70 Blood Pressure 104/57 O2 Sat by Pulse 100 100 Oximetry O2 Sat by Pulse Oximetry [ Posterior Bilateral Throughout] 05/08/22 05/08/22 05/08/22 13:50 13:55 14:00 Pulse Rate 74 71 64 Blood Pressure O2 Sat by Pulse 99 99 98 Oximetry O2 Sat by Pulse Oximetry [ Posterior Bilateral Throughout] 05/08/22 05/08/22 05/08/22 14:05 14:10 14:15 Pulse Rate 66 70 64 Blood Pressure O2 Sat by Pulse 97 97 99 Oximetry O2 Sat by Pulse Oximetry [ Posterior Bilateral Throughout] 05/08/22 05/08/22 05/08/22 14:20 14:25 14:30 Pulse Rate 84 76 72 Blood Pressure O2 Sat by Pulse 100 100 99 Oximetry O2 Sat by Pulse Oximetry [ Posterior Bilateral Throughout] 05/08/22 05/08/22 05/08/22 14:35 14:39 14:40 Pulse Rate 67 64 64 Blood Pressure 113/67 O2 Sat by Pulse 97 99 Oximetry O2 Sat by Pulse Oximetry [ Posterior Bilateral Throughout] 05/08/22 05/08/22 05/08/22 14:45 14:50 14:55 Pulse Rate 73 70 63 Blood Pressure O2 Sat by Pulse 98 98 98 Oximetry O2 Sat by Pulse Oximetry [ Posterior Bilateral Throughout] 05/08/22 05/08/22 05/08/22 15:00 15:05 15:10 Pulse Rate 63 67 71 Blood Pressure O2 Sat by Pulse 99 98 99 Oximetry O2 Sat by Pulse Oximetry [ Posterior Bilateral Throughout] 07/09/1905/08/22 05/08/22 15:19 15:24 15:25 Pulse Rate 74 76 71 Blood Pressure O2 Sat by Pulse 100 100 88 Oximetry O2 Sat by Pulse Oximetry [ Posterior Bilateral Throughout] 05/08/22 05/08/22 05/08/22 15:29 15:34 15:38 Pulse Rate 77 81 71 Blood Pressure 118/63 O2 Sat by Pulse 100 100 Oximetry O2 Sat by Pulse Oximetry [ Posterior Bilateral Throughout] 05/08/22 05/08/22 05/08/22 15:39 15:44 15:49 Pulse Rate 77 82 95 H Blood Pressure O2 Sat by Pulse 100 100 100 Oximetry O2 Sat by Pulse Oximetry [ Posterior Bilateral Throughout] 05/08/22 05/08/22 05/08/22 15:52 15:54 15:59 Pulse Rate 96 H 88 89 Blood Pressure O2 Sat by Pulse 71 L 94 100 Oximetry O2 Sat by Pulse Oximetry [ Posterior Bilateral Throughout] 05/08/22 05/08/22 05/08/22 16:02 16:04 16:09 Pulse Rate 96 H 107 H 90 Blood Pressure O2 Sat by Pulse 92 100 100 Oximetry O2 Sat by Pulse Oximetry [ Posterior Bilateral Throughout] 05/08/22 05/08/22 05/08/22 16:14 16:19 16:24 Pulse Rate 89 116 H 108 H Blood Pressure O2 Sat by Pulse 98 98 98 Oximetry O2 Sat by Pulse Oximetry [ Posterior Bilateral Throughout] 05/08/22 05/08/22 05/08/22 16:33 16:38 16:43 Pulse Rate 96 H 89 80 Blood Pressure 124/72 O2 Sat by Pulse 100 100 100 Oximetry O2 Sat by Pulse Oximetry [ Posterior Bilateral Throughout] 05/08/22 05/08/22 05/08/22 16:48 16:53 16:58 Pulse Rate 82 80 69 Blood Pressure O2 Sat by Pulse 100 100 99 Oximetry O2 Sat by Pulse Oximetry [ Posterior Bilateral Throughout] 05/08/22 05/08/22 05/08/22 17:03 17:08 17:13 Pulse Rate 75 73 84 Blood Pressure O2 Sat by Pulse 100 100 100 Oximetry O2 Sat by Pulse Oximetry [ Posterior Bilateral Throughout] 05/08/22 05/08/22 05/08/22 17:18 17:23 17:28 Pulse Rate 72 78 84 Blood Pressure O2 Sat by Pulse 100 100 100 Oximetry O2 Sat by Pulse Oximetry [ Posterior Bilateral Throughout] 05/08/22 05/08/22 05/08/22 17:33 17:38 17:42 Pulse Rate 93 H 80 84 Blood Pressure 118/75 O2 Sat by Pulse 100 100 Oximetry O2 Sat by Pulse Oximetry [ Posterior Bilateral Throughout] 05/08/22 05/08/22 05/08/22 17:47 17:52 17:57 Pulse Rate 89 99 H 87 Blood Pressure O2 Sat by Pulse 100 100 100 Oximetry O2 Sat by Pulse Oximetry [ Posterior Bilateral Throughout] 05/08/22 05/08/22 05/08/22 18:02 18:07 18:12 Pulse Rate 88 100 H 86 Blood Pressure O2 Sat by Pulse 100 98 99 Oximetry O2 Sat by Pulse Oximetry [ Posterior Bilateral Throughout] 05/08/22 05/08/22 05/08/22 18:17 18:22 18:27 Pulse Rate 73 70 55 L Blood Pressure O2 Sat by Pulse 100 99 94 Oximetry O2 Sat by Pulse Oximetry [ Posterior Bilateral Throughout] 05/08/22 05/08/22 05/08/22 18:28 18:33 18:38 Pulse Rate 83 66 79 Blood Pressure 112/69 O2 Sat by Pulse 99 100 100 Oximetry O2 Sat by Pulse Oximetry [ Posterior Bilateral Throughout] 05/08/22 05/08/22 18:43 18:48 Pulse Rate 79 73 Blood Pressure O2 Sat by Pulse 100 100 Oximetry O2 Sat by Pulse Oximetry [ Posterior Bilateral Throughout] - Exam Breasts: deferred Cardiovascular: Regular rate Lungs: Clear to auscultation Abdomen: Present: normal appearance (OBESE) Vulva: both: normal FHR: category 1 Uterine Contraction Monitor Mode: External Cervical Dilatation: 0 Cervical Effacement Percentage: 50 station: -4 Uterine Contraction Frequency (min): MINIMAL TO NONE Uterine Contraction Pattern: Irregular Uterine Contraction Intensity: Mild Extremities: normal Deep Tendon Reflex Grade: Normal +2 - Labs Labs: Abnormal Labs 05/07/22 05/08/22 21:00 02:46 RDW 15.3 H POC Glucose 128 H Laboratory Results - last 24 hr 05/07/22 05/07/22 05/07/22 21:00 22:03 23:17 WBC 8.0 RBC 3.80 Hgb 11.3 Hct 34.3 MCV 90 MCH 30 MCHC 33 RDW 15.3 H Plt Count 154 POC Glucose 94 Blood Type B POSITIVE Antibody Screen Negative 05/08/22 05/08/22 05/08/22 02:46 02:58 07:01 WBC RBC Hgb Hct MCV MCH MCHC RDW Plt Count POC Glucose 128 H 86 89 Blood Type Antibody Screen - Results US- obstetric: pending ( POSITION)
--- NOTE | 2022-05-08 19:17 | Progress Note ---
Assessment and Plan A: D2@40.21WK GESTATION IOL FOR GDM, MORBID OBESITY CAT 1 TRACING GBS POSITIVE P: CONTINUE CYTOTEC INDUCTION CONTINUE BS MONITORING FBS/2HR PP Subjective - Subjective Date of service: 05/08/22 (190) Principal diagnosis: GDM, MO, GBS POS Patient reports: new complaints, movement normal Objective - Vital Signs Vital Signs: Vital Signs - 12hr 05/08/22 05/08/22 05/08/22 07:14 07:16 07:21 Pulse Rate 68 63 63 Blood Pressure 111/71 O2 Sat by Pulse 100 99 Oximetry O2 Sat by Pulse Oximetry [ Posterior Bilateral Throughout] 05/08/22 05/08/22 05/08/22 07:26 07:31 07:36 Pulse Rate 70 63 63 Blood Pressure O2 Sat by Pulse 99 99 98 Oximetry O2 Sat by Pulse Oximetry [ Posterior Bilateral Throughout] 05/08/22 05/08/22 05/08/22 07:41 07:46 07:51 Pulse Rate 69 56 L 62 Blood Pressure O2 Sat by Pulse 99 99 98 Oximetry O2 Sat by Pulse Oximetry [ Posterior Bilateral Throughout] 05/08/22 05/08/22 05/08/22 07:56 08:01 08:06 Pulse Rate 59 L 91 H 78 Blood Pressure O2 Sat by Pulse 99 98 99 Oximetry O2 Sat by Pulse Oximetry [ Posterior Bilateral Throughout] 05/08/22 05/08/22 05/08/22 08:10 08:11 08:13 Pulse Rate 83 64 Blood Pressure 123/74 O2 Sat by Pulse 99 Oximetry O2 Sat by Pulse 98 Oximetry [ Posterior Bilateral Throughout] 05/08/22 05/08/22 05/08/22 08:16 08:21 08:26 Pulse Rate 83 67 74 Blood Pressure O2 Sat by Pulse 100 99 100 Oximetry O2 Sat by Pulse Oximetry [ Posterior Bilateral Throughout] 05/08/22 05/08/22 05/08/22 08:31 08:36 08:41 Pulse Rate 69 79 69 Blood Pressure O2 Sat by Pulse 100 100 99 Oximetry O2 Sat by Pulse Oximetry [ Posterior Bilateral Throughout] 05/08/22 05/08/22 05/08/22 08:46 08:51 08:56 Pulse Rate 68 71 73 Blood Pressure O2 Sat by Pulse 100 100 100 Oximetry O2 Sat by Pulse Oximetry [ Posterior Bilateral Throughout] 0705/08/22 05/08/22 09:01 09:06 09:11 Pulse Rate 71 67 71 Blood Pressure O2 Sat by Pulse 100 99 100 Oximetry O2 Sat by Pulse Oximetry [ Posterior Bilateral Throughout] 05/08/22 05/08/22 05/08/22 09:15 09:16 09:21 Pulse Rate 64 69 69 Blood Pressure 123/68 O2 Sat by Pulse 100 100 Oximetry O2 Sat by Pulse Oximetry [ Posterior Bilateral Throughout] 05/08/22 05/08/22 05/08/22 09:26 09:31 09:36 Pulse Rate 72 82 84 Blood Pressure O2 Sat by Pulse 100 100 100 Oximetry O2 Sat by Pulse Oximetry [ Posterior Bilateral Throughout] 05/08/22 05/08/22 05/08/22 09:41 09:46 09:51 Pulse Rate 73 77 71 Blood Pressure O2 Sat by Pulse 100 99 99 Oximetry O2 Sat by Pulse Oximetry [ Posterior Bilateral Throughout] 05/08/22 05/08/22 05/08/22 09:56 10:05 10:10 Pulse Rate 81 92 H 85 Blood Pressure O2 Sat by Pulse 99 100 100 Oximetry O2 Sat by Pulse Oximetry [ Posterior Bilateral Throughout] 05/08/22 05/08/22 05/08/22 10:14 10:15 12:36 Pulse Rate 73 75 Blood Pressure 123/74 O2 Sat by Pulse 100 87 Oximetry O2 Sat by Pulse Oximetry [ Posterior Bilateral Throughout] 05/08/22 05/08/22 05/08/22 12:37 12:38 12:41 Pulse Rate 146 H 75 83 Blood Pressure 106/55 O2 Sat by Pulse 83 L 100 Oximetry O2 Sat by Pulse Oximetry [ Posterior Bilateral Throughout] 05/08/22 05/08/22 05/08/22 12:46 12:51 12:56 Pulse Rate 72 87 78 Blood Pressure O2 Sat by Pulse 99 98 99 Oximetry O2 Sat by Pulse Oximetry [ Posterior Bilateral Throughout] 05/08/22 05/08/22 05/08/22 13:01 13:06 13:11 Pulse Rate 82 76 73 Blood Pressure O2 Sat by Pulse 100 100 98 Oximetry O2 Sat by Pulse Oximetry [ Posterior Bilateral Throughout] 05/08/22 05/08/22 05/08/22 13:20 13:25 13:30 Pulse Rate 88 84 67 Blood Pressure O2 Sat by Pulse 100 100 100 Oximetry O2 Sat by Pulse Oximetry [ Posterior Bilateral Throughout] 05/08/22 05/08/22 05/08/22 13:35 13:38 13:40 Pulse Rate 73 70 69 Blood Pressure 104/57 O2 Sat by Pulse 100 100 Oximetry O2 Sat by Pulse Oximetry [ Posterior Bilateral Throughout] 05/08/22 05/08/22 05/08/22 13:45 13:50 13:55 Pulse Rate 70 74 71 Blood Pressure O2 Sat by Pulse 100 99 99 Oximetry O2 Sat by Pulse Oximetry [ Posterior Bilateral Throughout] 05/08/22 05/08/22 05/08/22 14:00 14:05 14:10 Pulse Rate 64 66 70 Blood Pressure O2 Sat by Pulse 98 97 97 Oximetry O2 Sat by Pulse Oximetry [ Posterior Bilateral Throughout] 05/08/22 05/08/22 05/08/22 14:15 14:20 14:25 Pulse Rate 64 84 76 Blood Pressure O2 Sat by Pulse 99 100 100 Oximetry O2 Sat by Pulse Oximetry [ Posterior Bilateral Throughout] 05/08/22 05/08/22 05/08/22 14:30 14:35 14:39 Pulse Rate 72 67 64 Blood Pressure 113/67 O2 Sat by Pulse 99 97 Oximetry O2 Sat by Pulse Oximetry [ Posterior Bilateral Throughout] 05/08/22 05/08/22 05/08/22 14:40 14:45 14:50 Pulse Rate 64 73 70 Blood Pressure O2 Sat by Pulse 99 98 98 Oximetry O2 Sat by Pulse Oximetry [ Posterior Bilateral Throughout] 05/08/22 05/08/22 05/08/22 14:55 15:00 15:05 Pulse Rate 63 63 67 Blood Pressure O2 Sat by Pulse 98 99 98 Oximetry O2 Sat by Pulse Oximetry [ Posterior Bilateral Throughout] 05/08/22 05/08/22 05/08/22 15:10 15:19 15:24 Pulse Rate 71 74 76 Blood Pressure O2 Sat by Pulse 99 100 100 Oximetry O2 Sat by Pulse Oximetry [ Posterior Bilateral Throughout] 05/08/22 05/08/22 05/08/22 15:25 15:29 15:34 Pulse Rate 71 77 81 Blood Pressure O2 Sat by Pulse 88 100 100 Oximetry O2 Sat by Pulse Oximetry [ Posterior Bilateral Throughout] 05/08/22 05/08/22 05/08/22 15:38 15:39 15:44 Pulse Rate 71 77 82 Blood Pressure 118/63 O2 Sat by Pulse 100 100 Oximetry O2 Sat by Pulse Oximetry [ Posterior Bilateral Throughout] 05/08/22 05/08/22 05/08/22 15:49 15:52 15:54 Pulse Rate 95 H 96 H 88 Blood Pressure O2 Sat by Pulse 100 71 L 94 Oximetry O2 Sat by Pulse Oximetry [ Posterior Bilateral Throughout] 05/08/22 05/08/22 05/08/22 15:59 16:02 16:04 Pulse Rate 89 96 H 107 H Blood Pressure O2 Sat by Pulse 100 92 100 Oximetry O2 Sat by Pulse Oximetry [ Posterior Bilateral Throughout] 05/08/22 05/08/22 05/08/22 16:09 16:14 16:19 Pulse Rate 90 89 116 H Blood Pressure O2 Sat by Pulse 100 98 98 Oximetry O2 Sat by Pulse Oximetry [ Posterior Bilateral Throughout] 05/08/22 05/08/22 05/08/22 16:24 16:33 16:38 Pulse Rate 108 H 96 H 89 Blood Pressure 124/72 O2 Sat by Pulse 98 100 100 Oximetry O2 Sat by Pulse Oximetry [ Posterior Bilateral Throughout] 05/08/22 05/08/22 05/08/22 16:43 16:48 16:53 Pulse Rate 80 82 80 Blood Pressure O2 Sat by Pulse 100 100 100 Oximetry O2 Sat by Pulse Oximetry [ Posterior Bilateral Throughout] 05/08/22 05/08/22 05/08/22 16:58 17:03 17:08 Pulse Rate 69 75 73 Blood Pressure O2 Sat by Pulse 99 100 100 Oximetry O2 Sat by Pulse Oximetry [ Posterior Bilateral Throughout] 05/08/22 05/08/22 05/08/22 17:13 17:18 17:23 Pulse Rate 84 72 78 Blood Pressure O2 Sat by Pulse 100 100 100 Oximetry O2 Sat by Pulse Oximetry [ Posterior Bilateral Throughout] 05/08/22 05/08/22 05/08/22 17:28 17:33 17:38 Pulse Rate 84 93 H 80 Blood Pressure 118/75 O2 Sat by Pulse 100 100 Oximetry O2 Sat by Pulse Oximetry [ Posterior Bilateral Throughout] 05/08/22 05/08/22 05/08/22 17:42 17:47 17:52 Pulse Rate 84 89 99 H Blood Pressure O2 Sat by Pulse 100 100 100 Oximetry O2 Sat by Pulse Oximetry [ Posterior Bilateral Throughout] 05/08/22 05/08/22 05/08/22 17:57 18:02 18:07 Pulse Rate 87 88 100 H Blood Pressure O2 Sat by Pulse 100 100 98 Oximetry O2 Sat by Pulse Oximetry [ Posterior Bilateral Throughout] 05/08/22 05/08/22 05/08/22 18:12 18:17 18:22 Pulse Rate 86 73 70 Blood Pressure O2 Sat by Pulse 99 100 99 Oximetry O2 Sat by Pulse Oximetry [ Posterior Bilateral Throughout] 05/08/22 05/08/22 05/08/22 18:27 18:28 18:33 Pulse Rate 55 L 83 66 Blood Pressure O2 Sat by Pulse 94 99 100 Oximetry O2 Sat by Pulse Oximetry [ Posterior Bilateral Throughout] 05/08/22 05/08/22 05/08/22 18:38 18:43 18:48 Pulse Rate 79 79 73 Blood Pressure 112/69 O2 Sat by Pulse 100 100 100 Oximetry O2 Sat by Pulse Oximetry [ Posterior Bilateral Throughout] 05/08/22 05/08/22 05/08/22 18:53 18:58 19:03 Pulse Rate 73 86 67 Blood Pressure O2 Sat by Pulse 100 100 100 Oximetry O2 Sat by Pulse Oximetry [ Posterior Bilateral Throughout] 05/08/22 19:08 Pulse Rate 66 Blood Pressure O2 Sat by Pulse 100 Oximetry O2 Sat by Pulse Oximetry [ Posterior Bilateral Throughout] - Exam Vulva: both: normal FHR: category 1 (READJUSTED WIRELESS TOCO/EFM ) FHR comments: 140-145 Uterine Contraction Monitor Mode: External Cervical Dilatation: 1 Cervical Effacement Percentage: 50 station: -4 Uterine Contraction Frequency (min): 1-4 Uterine Contraction Pattern: Regular Uterine Contraction Intensity: Moderate Extremities: normal - Labs Labs: Abnormal Labs 05/07/22 05/08/22 21:00 02:46 RDW 15.3 H POC Glucose 128 H Laboratory Results - last 24 hr 05/07/22 05/07/22 05/07/22 21:00 22:03 23:17 WBC 8.0 RBC 3.80 Hgb 11.3 Hct 34.3 MCV 90 MCH 30 MCHC 33 RDW 15.3 H Plt Count 154 POC Glucose 94 Blood Type B POSITIVE Antibody Screen Negative 05/08/22 05/08/22 05/08/22 02:46 02:58 07:01 WBC RBC Hgb Hct MCV MCH MCHC RDW Plt Count POC Glucose 128 H 86 89 Blood Type Antibody Screen 05/08/22 19:00 WBC RBC Hgb Hct MCV MCH MCHC RDW Plt Count POC Glucose 102 Blood Type Antibody Screen - Results US- obstetric: report reviewed (CEPHALIC POSITION)
--- NOTE | 2022-05-08 21:39 | Ultrasound Report ---
ULTRASOUND OBSTETRIC INDICATION / CLINICAL INFORMATION: GDM, MO. Clinical Gestational Age (GA) in weeks, days: 40, 2 TECHNIQUE: Transabdominal. COMPARISON: 04/27/2022 FINDINGS: Single intrauterine . Biparietal Diameter = 9.6 cm = 39, 2 weeks, days Head Circumference = 33.8 cm = 38, 5 weeks, days Abdominal Circumference = 32.2 cm = 36, 1 weeks, days Femur Length = 5.4 cm = 28, 3 weeks, days Average Ultrasound Age (AUA) = 35, 5 weeks, days Heart Rate: 127 beats per minute. Estimated Weight in grams (if calculated): 2485 Estimated Weight Growth Percentile (if calculated): 1 Position: cephalic. Amniotic Fluid Volume: normal Amniotic Fluid Index (JERMAIN) in cm (if calculated): 9.4. IMPRESSION: 1. Single, living intrauterine with estimated sonographic age of 35, 5 weeks, days. Differe nce in dating may be secondary to provided femur length. There is noted heart rate of 127 be te rminated. 2. No other significant sonographic abnormality. Signer Name: Paulino Greene DO Signed: 05/08/2022 9:34 PM Workstation Name: [id number]
[2022-05-09] MEDS ORDERED: BUTORPHANOL 2 MG/1 ML INJ IV PRN (01:03)
[2022-05-09] MEDS ORDERED: PENICILLIN G POTASSIUM 5 MIL.UNITS in SODIUM CHLORIDE 0.9% 100 ML IV ONE (01:38)
[2022-05-09] MEDS ORDERED: miSOPROStol 25 MCG TAB PO SCH (02:00)
[2022-05-09] MEDS: LACTATED RINGERS 1,000 ML IV SCH (02:09)
[2022-05-09] MEDS: fentaNYL 100 MCG/2 ML INJ IV PRN ×2 (02:19→04:27)
[2022-05-09] MEDS ORDERED: ONDANSETRON 4 MG/2 ML INJ IV ONE (04:28)
[2022-05-09] MEDS ORDERED: PENICILLIN G POTASSIUM 2.5 MIL.UNITS in SODIUM CHLORIDE 0.9% 50 ML IV SCH (05:00)
[2022-05-09] MEDS ORDERED: fentaNYL-BUPIV 2 MCG/ML-0.125% 200 MCG/100 ML BAG EPIDURAL SCH ×2 (05:35→12:00)
[2022-05-09] MEDS ORDERED: ePHEDrine SULFATE 50 MG/1 ML INJ IV PRN (05:35)
[2022-05-09] MEDS ORDERED: NALOXONE 0.4 MG/1 ML INJ IV PRN ×3 (05:35→12:00)
[2022-05-09] MEDS ORDERED: BUPIVACAINE/PF (0.25%) 2.5 MG/ML 10 ML VIAL INFILTRATI ONE (05:40)
--- NOTE | 2022-05-09 06:14 | Progress Note ---
Labor Epidural - Labor Epidural Start Time: 05:46 Stop Time: 05:55 Performed by:: NICOLE AUGUSTIN Procedure: Epidural Requested for Labor Pain. H&P and PT Chart reviewed and consent obtained. Time out performed and the procedure was explained, all questions answered. Patient was placed in a sitting position with monitors applied. The PTs back was prepped and draped in usual sterile fashion. The Skin was localized with 3 mL of 1% lidocaine at L3-L4. A 17-gauge Touhy epidural needle was advanced to CRYSTAL with saline at 7 cm and no blood/CSF was noted via epidural needle. Epidural catheter was advanced to 12 cm. There was negative aspiration for blood and CSF in the catheter and negative response to a test dose of 3 ml 1.5% lidocaine w/ Epi and a sterile dressing was applied Patient tolerated the procedure well and there were no immediate complications noted.
--- NOTE | 2022-05-09 06:14 | Anesthesia Day of Surgery ---
Anesthesia Day of Surgery - Day of Surgery Patient Examined: Yes Patient H&P Reviewed: Yes Patient is NPO: Yes Beta Blockers: No Cardiac Clearance: No Pulmonary Clearance: No Fco's Test: N/A
--- NOTE | 2022-05-09 06:14 | Anesthesia Consultation ---
Anesthesia Consult and Med Hx Date of service: 05/09/22 - Airway Anesthetic Teeth Evaluation: Good ROM Head & Neck: Adequate Mental/Hyoid Distance: Adequate Mallampati Class: Class II Intubation Access Assessment: Probably Good - Pulmonary Exam CTA: Yes - Cardiac Exam Cardiac Exam: RRR - Pre-Operative Health Status ASA Pre-Surgery Classification: ASA2 Proposed Anesthetic Plan: Epidural - Pulmonary Hx Smoking: No Hx Asthma: No Hx Respiratory Symptoms: No SOB: No COPD: No Home Oxygen Therapy: No Hx Pneumonia: No Hx Sleep Apnea: No - Cardiovascular System Hx Hypertension: No Hx Coronary Artery Disease: No Hx Heart Attack/AMI: No Hx Angina: No Hx Percutaneous Transluminal Coronary Angioplasty (PTCA): No Hx Cardia Arrhythmia: No Hx Pacemaker: No Hx Internal Defibrillator: No Hx Valvular Heart Disease: No Hx Heart Murmur: No Hx Peripheral Vascular Disease: No - Central Nervous System Hx Neuromuscular Disorder: No Hx Seizures: No CVA: No Hx Back Pain: No Hx Psychiatric Problems: No - Gastrointestinal Hx Ulcer: No Hx Gastroesophageal Reflux Disease: No - Endocrine Hx Renal Disease: No Hx End Stage Renal Disease: No Hx Cirrhosis: No Hx Liver Disease: No Hx Insulin Dependent Diabetes: No Hx Non-Insulin Dependent Diabetes: No Hx Thyroid Disease: No Hx Hypothyroidism: No Hx Hyperthyroidism: No - Hematic Hx Anemia: No Hx Sickle Cell Disease: No - Other Systems Hx Alcohol Use: No Hx Substance Use: No Hx Cancer: No Hx Obesity: No
[2022-05-09] MEDS ORDERED: BICITRA ORAL LIQD 30ML ONE (08:46)
[2022-05-09] MEDS ORDERED: METOCLOPRAMIDE 10 MG/2 ML INJ ONE (08:46)
[2022-05-09] MEDS ORDERED: FAMOTIDINE 20 MG/2 ML INJ IV ONE ×2 (08:47→08:54)
[2022-05-09] MEDS ORDERED: ceFAZolin/Water 2 GM/20 ML 2 GM/20 ML SYRINGE IV ONE (08:47)
[2022-05-09] MEDS ORDERED: BUPIVACAINE/PF (0.25%) 2.5 MG/ML 30 ML VIAL INFILTRATI ONE ×2 (08:49→09:58)
[2022-05-09] MEDS ORDERED: METOCLOPRAMIDE 10 MG/2 ML INJ IV ONE (08:54)
[2022-05-09] MEDS ORDERED: BICITRA ORAL LIQD 30ML PO NR (08:54)
[2022-05-09] MEDS ORDERED: SODIUM CHLORIDE 0.9% 1000 ML 1,000 ML VG SCH (09:00)
[2022-05-09] MEDS ORDERED: fentaNYL 100 MCG/2 ML INJ ONE ×2 (09:29→10:36)
--- NOTE | 2022-05-09 09:40 | Progress Note ---
Assessment and Plan A: 40.3wks HD 3 IOL GDM, MO Epidural in place AROM clear ISE, IUPC in place FHR decelerations cat 2 tracing P: Continue /contraction monitoring BS wnl Amnio infusion for frequent deep decelerations Rn to continue routine interventions Subjective - Subjective Date of service: 05/09/22 (829) Principal diagnosis: GDM, MO, GBS POS Patient reports: new complaints, loss of fluid (clear), movement normal, contractions Objective - Vital Signs Vital Signs: Vital Signs - 12hr 05/08/22 05/08/22 05/08/22 21:38 21:40 21:49 Temperature Pulse Rate 77 75 48 L Respiratory Rate Blood Pressure 144/76 Blood Pressure [Left] O2 Sat by Pulse 99 94 Oximetry 05/08/22 05/08/22 05/08/22 21:54 21:59 22:04 Temperature Pulse Rate 74 74 61 Respiratory Rate Blood Pressure Blood Pressure [Left] O2 Sat by Pulse 100 99 100 Oximetry 05/08/22 05/08/22 05/08/22 22:09 22:14 22:19 Temperature Pulse Rate 62 84 64 Respiratory Rate Blood Pressure Blood Pressure [Left] O2 Sat by Pulse 100 100 100 Oximetry 05/08/22 05/08/22 05/08/22 22:24 22:29 22:34 Temperature Pulse Rate 63 74 64 Respiratory Rate Blood Pressure Blood Pressure [Left] O2 Sat by Pulse 100 100 100 Oximetry 05/08/22 05/08/22 05/08/22 22:38 22:39 22:44 Temperature Pulse Rate 60 60 58 L Respiratory Rate Blood Pressure 114/69 Blood Pressure [Left] O2 Sat by Pulse 99 99 Oximetry 05/08/22 05/08/22 05/08/22 22:49 22:54 22:59 Temperature Pulse Rate 60 60 58 L Respiratory Rate Blood Pressure Blood Pressure [Left] O2 Sat by Pulse 98 99 98 Oximetry 05/08/22 05/08/22 05/08/22 23:04 23:09 23:14 Temperature Pulse Rate 61 63 65 Respiratory Rate Blood Pressure Blood Pressure [Left] O2 Sat by Pulse 98 98 97 Oximetry 05/08/22 05/08/22 05/08/22 23:19 23:24 23:29 Temperature Pulse Rate 63 65 64 Respiratory Rate Blood Pressure Blood Pressure [Left] O2 Sat by Pulse 99 98 99 Oximetry 05/08/22 05/08/22 05/08/22 23:34 23:38 23:39 Temperature 97.9 F Pulse Rate 55 L 56 L 68 Respiratory 17 Rate Blood Pressure 116/71 Blood Pressure [Left] O2 Sat by Pulse 100 100 Oximetry 05/08/22 05/08/22 05/08/22 23:44 23:49 23:54 Temperature Pulse Rate 55 L 60 56 L Respiratory Rate Blood Pressure Blood Pressure [Left] O2 Sat by Pulse 100 99 100 Oximetry 05/08/22 05/09/22 05/09/22 23:59 00:04 00:09 Temperature Pulse Rate 61 61 59 L Respiratory Rate Blood Pressure Blood Pressure [Left] O2 Sat by Pulse 95 98 98 Oximetry 05/09/22 05/09/22 05/09/22 00:14 00:19 00:24 Temperature Pulse Rate 67 62 62 Respiratory Rate Blood Pressure Blood Pressure [Left] O2 Sat by Pulse 99 98 98 Oximetry 05/09/22 05/09/22 05/09/22 00:29 00:34 00:39 Temperature Pulse Rate 66 67 54 L Respiratory Rate Blood Pressure 118/69 Blood Pressure [Left] O2 Sat by Pulse 98 98 98 Oximetry 05/09/22 05/09/22 05/09/22 00:44 00:49 00:54 Temperature Pulse Rate 65 63 59 L Respiratory Rate Blood Pressure Blood Pressure [Left] O2 Sat by Pulse 98 98 99 Oximetry 05/09/22 05/09/22 05/09/22 01:03 01:08 01:13 Temperature Pulse Rate 72 66 61 Respiratory Rate Blood Pressure Blood Pressure [Left] O2 Sat by Pulse 94 100 99 Oximetry 05/09/22 05/09/22 05/09/22 01:18 01:23 01:28 Temperature Pulse Rate 73 65 63 Respiratory Rate Blood Pressure Blood Pressure [Left] O2 Sat by Pulse 99 99 98 Oximetry 05/09/22 05/09/22 05/09/22 01:33 01:38 01:40 Temperature Pulse Rate 74 76 Respiratory Rate Blood Pressure 120/65 Blood Pressure [Left] O2 Sat by Pulse 98 100 47 L Oximetry 05/09/22 05/09/22 05/09/22 01:43 01:48 01:53 Temperature Pulse Rate 72 72 62 Respiratory Rate Blood Pressure Blood Pressure [Left] O2 Sat by Pulse 100 100 100 Oximetry 05/09/22 05/09/22 05/09/22 01:58 02:03 02:08 Temperature Pulse Rate 61 72 64 Respiratory Rate Blood Pressure Blood Pressure [Left] O2 Sat by Pulse 100 100 100 Oximetry 05/09/22 05/09/22 05/09/22 02:13 02:18 02:24 Temperature Pulse Rate 76 85 91 H Respiratory Rate Blood Pressure Blood Pressure [Left] O2 Sat by Pulse 100 100 100 Oximetry 05/09/22 05/09/22 05/09/22 02:29 02:34 02:39 Temperature Pulse Rate 66 71 90 Respiratory Rate Blood Pressure Blood Pressure [Left] O2 Sat by Pulse 99 99 98 Oximetry 05/09/22 05/09/22 05/09/22 02:44 02:49 02:54 Temperature Pulse Rate 88 99 H 67 Respiratory Rate Blood Pressure Blood Pressure [Left] O2 Sat by Pulse 100 100 100 Oximetry 05/09/22 05/09/22 05/09/22 02:59 03:04 03:09 Temperature Pulse Rate 83 92 H 86 Respiratory Rate Blood Pressure Blood Pressure [Left] O2 Sat by Pulse 100 97 100 Oximetry 05/09/22 05/09/22 05/09/22 03:14 03:16 03:19 Temperature Pulse Rate 76 128 H 86 Respiratory Rate Blood Pressure Blood Pressure [Left] O2 Sat by Pulse 100 91 100 Oximetry 05/09/22 05/09/22 05/09/22 03:21 03:24 03:29 Temperature 97.9 F Pulse Rate 68 69 85 Respiratory 21 Rate Blood Pressure 127/66 Blood Pressure 127/66 [Left] O2 Sat by Pulse 100 100 100 Oximetry 05/09/22 05/09/22 05/09/22 03:33 03:34 03:39 Temperature Pulse Rate 80 76 97 H Respiratory Rate Blood Pressure Blood Pressure [Left] O2 Sat by Pulse 93 100 97 Oximetry 05/09/22 05/09/22 05/09/22 03:44 03:49 03:54 Temperature Pulse Rate 74 71 75 Respiratory Rate Blood Pressure Blood Pressure [Left] O2 Sat by Pulse 100 100 100 Oximetry 05/09/22 05/09/22 05/09/22 03:59 04:04 04:09 Temperature Pulse Rate 66 70 93 H Respiratory Rate Blood Pressure Blood Pressure [Left] O2 Sat by Pulse 100 100 99 Oximetry 05/09/22 05/09/22 05/09/22 05:39 05:41 05:44 Temperature Pulse Rate 85 69 80 Respiratory Rate Blood Pressure 115/58 Blood Pressure [Left] O2 Sat by Pulse 97 100 Oximetry 05/09/22 05/09/22 05/09/22 05:49 05:52 05:54 Temperature Pulse Rate 84 81 100 H Respiratory Rate Blood Pressure 119/59 Blood Pressure [Left] O2 Sat by Pulse 100 98 Oximetry 05/09/22 05/09/22 05/09/22 05:56 05:59 06:02 Temperature Pulse Rate 89 91 H 88 Respiratory Rate Blood Pressure 118/58 115/58 113/64 Blood Pressure [Left] O2 Sat by Pulse 100 Oximetry 05/09/22 05/09/22 05/09/22 06:04 06:05 06:08 Temperature Pulse Rate 112 H 109 H 98 H Respiratory Rate Blood Pressure 116/57 99/59 Blood Pressure [Left] O2 Sat by Pulse 100 Oximetry 05/09/22 05/09/22 05/09/22 06:09 06:13 06:14 Temperature Pulse Rate 103 H 114 H 111 H Respiratory Rate Blood Pressure 95/53 Blood Pressure [Left] O2 Sat by Pulse 100 100 Oximetry 05/09/22 05/09/22 05/09/22 06:18 06:19 06:23 Temperature Pulse Rate 122 H 113 H 114 H Respiratory Rate Blood Pressure 86/53 112/81 Blood Pressure [Left] O2 Sat by Pulse 100 Oximetry 05/09/22 05/09/22 05/09/22 06:24 06:29 06:34 Temperature Pulse Rate 105 H 102 H 96 H Respiratory Rate Blood Pressure 104/51 108/51 Blood Pressure [Left] O2 Sat by Pulse 100 100 100 Oximetry 05/09/22 05/09/22 05/09/22 06:39 06:43 06:44 Temperature Pulse Rate 112 H 121 H 90 Respiratory Rate Blood Pressure 100/55 101/51 Blood Pressure [Left] O2 Sat by Pulse 100 94 100 Oximetry 05/09/22 05/09/22 05/09/22 06:49 06:53 06:54 Temperature Pulse Rate 80 90 90 Respiratory Rate Blood Pressure 102/53 92/53 Blood Pressure [Left] O2 Sat by Pulse 100 100 Oximetry 05/09/22 05/09/22 05/09/22 06:58 06:59 07:04 Temperature Pulse Rate 82 113 H 78 Respiratory Rate Blood Pressure 96/54 96/55 Blood Pressure [Left] O2 Sat by Pulse 100 100 Oximetry 05/09/22 05/09/22 05/09/22 07:08 07:09 07:13 Temperature Pulse Rate 101 H 84 85 Respiratory Rate Blood Pressure 103/57 95/52 Blood Pressure [Left] O2 Sat by Pulse 100 Oximetry 05/09/22 05/09/22 05/09/22 07:14 07:18 07:19 Temperature Pulse Rate 105 H 89 85 Respiratory Rate Blood Pressure 102/51 Blood Pressure [Left] O2 Sat by Pulse 100 100 Oximetry 05/09/22 05/09/22 05/09/22 07:23 07:24 07:29 Temperature Pulse Rate 106 H 118 H 98 H Respiratory Rate Blood Pressure 109/55 108/59 Blood Pressure [Left] O2 Sat by Pulse 100 100 Oximetry 05/09/22 05/09/22 05/09/22 07:33 07:34 07:38 Temperature Pulse Rate 110 H 103 H 97 H Respiratory Rate Blood Pressure 99/52 81/52 Blood Pressure [Left] O2 Sat by Pulse 100 Oximetry 05/09/22 05/09/22 05/09/22 07:39 07:43 07:44 Temperature Pulse Rate 94 H 87 99 H Respiratory Rate Blood Pressure 91/53 Blood Pressure [Left] O2 Sat by Pulse 100 100 Oximetry 05/09/22 05/09/22 05/09/22 07:48 07:49 07:53 Temperature Pulse Rate 96 H 93 H 130 H Respiratory Rate Blood Pressure 98/55 119/67 Blood Pressure [Left] O2 Sat by Pulse 100 Oximetry 05/09/22 05/09/22 05/09/22 07:54 07:59 08:04 Temperature Pulse Rate 119 H 102 H 91 H Respiratory Rate Blood Pressure 122/62 105/51 Blood Pressure [Left] O2 Sat by Pulse 100 100 100 Oximetry 05/09/22 05/09/22 05/09/22 08:09 08:14 08:15 Temperature Pulse Rate 106 H 84 84 Respiratory Rate Blood Pressure 108/54 Blood Pressure [Left] O2 Sat by Pulse 100 100 Oximetry 05/09/22 05/09/22 05/09/22 08:18 08:19 08:24 Temperature Pulse Rate 80 98 H 97 H Respiratory Rate Blood Pressure 102/51 104/55 Blood Pressure [Left] O2 Sat by Pulse 100 100 Oximetry 05/09/22 05/09/22 05/09/22 08:29 08:30 08:33 Temperature Pulse Rate 85 90 82 Respiratory Rate Blood Pressure 122/47 113/61 Blood Pressure [Left] O2 Sat by Pulse 100 Oximetry 05/09/22 05/09/22 05/09/22 08:34 08:38 08:39 Temperature Pulse Rate 84 73 86 Respiratory Rate Blood Pressure 120/63 Blood Pressure [Left] O2 Sat by Pulse 100 100 Oximetry 05/09/22 05/09/22 05/09/22 08:43 08:44 08:52 Temperature Pulse Rate 85 93 H 99 H Respiratory Rate Blood Pressure 118/61 Blood Pressure [Left] O2 Sat by Pulse 100 100 Oximetry 05/09/22 05/09/22 05/09/22 08:57 09:02 09:07 Temperature Pulse Rate 101 H 116 H 110 H Respiratory Rate Blood Pressure Blood Pressure [Left] O2 Sat by Pulse 100 100 100 Oximetry 05/09/22 05/09/22 05/09/22 09:12 09:17 09:22 Temperature Pulse Rate 108 H 112 H 124 H Respiratory Rate Blood Pressure Blood Pressure [Left] O2 Sat by Pulse 100 100 100 Oximetry 05/09/22 05/09/22 09:27 09:32 Temperature Pulse Rate 132 H 122 H Respiratory Rate Blood Pressure Blood Pressure [Left] O2 Sat by Pulse 100 100 Oximetry - Exam Vulva: both: normal Uterus: Present: fundal height above umbilicus FHR: category 2 FHR comments: Internal ISE Uterine Contraction Monitor Mode: Internal Cervical Dilatation: 6 (stretchy, from machinical dilation) Cervical Effacement Percentage: 80 station: -3 Uterine Contraction Frequency (min): 3-6 - Labs Labs: Abnormal Labs 05/07/22 05/08/22 21:00 02:46 RDW 15.3 H POC Glucose 128 H Laboratory Results - last 24 hr 05/08/22 05/08/22 05/09/22 19:00 22:15 02:07 POC Glucose 102 83 83 05/09/22 09:00 POC Glucose 101
[2022-05-09] MEDS ORDERED: ceFAZolin/STERILE WATER 2 GM/20 ML SYRINGE IV ONE (09:41)
[2022-05-09] MEDS ORDERED: WATER FOR IRRIG STERILE 1,500 ML BOTTLE IR ONE (09:41)
[2022-05-09] MEDS ORDERED: SODIUM CHLORIDE 0.9% IRR 1,500 ML BOTTLE IR ONE (09:41)
[2022-05-09] MEDS ORDERED: PHENYLEPHRINE/NS 1,000 MCG/10 ML SYRINGE (OR USE) IV ONE (09:47)
--- NOTE | 2022-05-09 09:58 | Event Note ---
Date: 05/09/22 (0845) Patient still with deep variable decels both with and after contractions down to 60 bpm. Without contractions FHR recovers in 140's-160's. CAT 2 tracing noted with minimal variability. Ve: still the same 6-7/-3, Amnioinfusion to continue. Place on left side, right leg elevated on stirup and trendelenberg position to decrease compression. Variables Decels now down to 90's with contractions, moderate variability noted. Terbutaline given for uterine rest. [place] full charge bookkeeper to contact Dr. Figueredo for primary Csection.
[2022-05-09] MEDS ORDERED: ONDANSETRON 4 MG/2 ML INJ ONE (10:00)
[2022-05-09] MEDS ORDERED: HYDROmorphone 1 MG/1 ML INJ IV PRN ×2 (11:21)
[2022-05-09] MEDS ORDERED: MORPHINE 4 MG/1 ML INJ IV PRN ×2 (11:21→11:55)
--- NOTE | 2022-05-09 11:49 | Progress Note ---
Regional Anesthesia Block - Regional Anesthesia Block Start Time: 11:03 Stop Time: 11:12 Performed By:: NICOLE AUGUSTIN Procedure: During the pre-op interview the patient agreed to and signed a consent for a TAP block for post surgical pain management. After her C/S was completed a time out was performed prior to the start of the procedure. The Trans Abdominal Plane was identified bilaterally via ultrasound. The skin was prepped bilaterally with chlorhexidine and a 22g stimuplex needle was advanced to the area between the internal oblique muscle and the trans abdominal plane. Marcaine 0.25% 30mlwas injected under ultrasound guidance on the left and right side. Negative aspiration every 5mL, There was no change in the patients heart rate or rhythm and the patient tolerated the procedure well. No apparent complications were observed.
[2022-05-09] MEDS ORDERED: IBUPROFEN 600 MG TAB PO PRN (11:55)
[2022-05-09] MEDS ORDERED: PROMETHAZINE 25 MG RECT SUPP PR PRN ×2 (11:55→12:00)
[2022-05-09] MEDS ORDERED: MORPHINE 2 MG/1 ML INJ IV PRN (11:55)
[2022-05-09] MEDS ORDERED: LANOLIN/ZINC/DIMETHICONE (LANSINOH) 7 GM TP PRN (11:55)
[2022-05-09] MEDS ORDERED: WITCH HAZEL/ GLYCERIN PAD TP PRN (11:55)
[2022-05-09] MEDS ORDERED: KETOROLAC 30 MG/1 ML INJ IV PRN ×2 (11:55)
[2022-05-09] MEDS ORDERED: ONDANSETRON 4 MG/2 ML INJ IV PRN (12:00)
[2022-05-09] MEDS ORDERED: OXYTOCIN DRIP 30 UNITS/500 ML BAG IV SCH (12:00)
[2022-05-09] MEDS ORDERED: PROMETHAZINE 25 MG TAB PO PRN (12:00)
--- NOTE | 2022-05-09 12:09 | Event Note ---
Date: 05/09/22 Mother in Trendelenburg pos. Variables continuing. Os 6cm, 0 station, + caput. section ordered.
--- NOTE | 2022-05-09 12:14 | Operative Report ---
Operative Report Operative Report: Date of surgery: May 09, 2022 Preoperative diagnoses: 40 weeks 3 days gestation, gestational diabetes, morbid obesity, failed induction intolerance of labor Postoperative diagnoses: The same. Operation: Lower segment transverse delivery Surgeon:Maury Figueredo MD Manager Management: Sam Cheatham CRNA Anesthesia: Epidural block Quantitative blood loss: 1175 mL Complications: None Findings: There was a live baby girl and occiput posterior position, 1+ caput, weight 6 pounds 14 ounces, Apgars 8/9. The ovaries and fallopian tubes were grossly normal. The uterus was started with 6 peanut sized subserosal fibroids. Procedure in detail: The patient was taken to the operating room and given a spinal block. Patient was placed in the straight supine position and a Padron catheter was inserted. The patient was prepped in the abdomen. The drapes were placed. A timeout was done. With the go ahead from the piano sounding board matcher, a Pfannenstiel incision was made. This incision was carried across the subcutaneous layer to the fascia which was also divided transversely. The recti abdominis muscle flaps were stripped from the fascia using a combination of blunt and sharp dissections. The muscles were in the midline to gain access to the anterior parietal peritoneum which was divided after excluding any underlying viscera. The access to the peritoneal cavity was then widened by manual stretching. The bladder blade was applied. The utero vesicle peritoneal flap was divided transversely allowing the bladder to be displaced caudally. The uterine incision was placed in the lower segment transversely. The uterine incision was carried to the decidual layer. The uterine incision was extended on both sides using the bandage scissors. The amniotic sac was ruptured with clear fluid. The head was lifted out of the false maternal pelvis and delivered through the incision using fundal pressure. The airways were bulb suctioned beginning with the mouth. Continuing fundal pressure combined with traction on the mandibular processes of the jaw delivered the rest of the baby. The umbilical cord was double clamped and divided. The baby was carefully transferred to the pediatric team. The placenta was manually removed from the uterine cavity. The uterine cavity was explored and was empty of any placental remnants. The uterine incision was repaired in 2 layers with #1 Vicryl. The surgical line on the uterus was hemostatic. Blood and clots were cleared from the peritoneal cavity. The anterior parietal peritoneum was repaired with #1 Vicryl. The fascia was repaired with #1 Vicryl. The subcutaneous layer was made hemostatic using the Bovie before the skin was closed subcuticularly with 4-0 Vicryl. There were no complications. The quantitative blood loss was 1175 mL. All sponges and instrument counts were correct. Patient was safely transferred to the recovery room.
[2022-05-09] MEDS ORDERED: LACTATED RINGERS 1,000 ML ONE (16:26)
--- NOTE | 2022-05-09 16:29 | Post Anesthesia Evaluation ---
- Post Anesthesia Evaluation Patient Participated: Yes Airway Patent: Yes Stable Respiratory Function: Yes Nausea/Vomiting: No Temp > 96.8F: Yes Pain Manageable: Yes Adequeate Hydration: Yes Anesthesia Complications: No Block Receding Appropriately: Yes Patient on Ventilator: No
[2022-05-09] MEDS: ceFAZolin/NS 1 GM/50 ML 1 GM/50 ML BAG IV SCH (18:06)
[2022-05-09 23:19] LABS: Hematocrit 29.2 % (30.3-42.9); Hemoglobin 9.6 gm/dl (10.1-14.3)
[2022-05-10] MEDS: HYDROcodone/ACETAMINOPHEN 5-325 MG TAB PO PRN ×3 (00:04→12:19)
[2022-05-10] MEDS: ceFAZolin/NS 1 GM/50 ML 1 GM/50 ML BAG IV SCH (01:41)
[2022-05-10] MEDS: IBUPROFEN 800 MG TAB PO PRN ×3 (01:42→23:10)
[2022-05-10] MEDS ORDERED: ceFAZolin/NS 1 GM/50 ML 1 GM/50 ML BAG IV SCH (02:00)
[2022-05-10] MEDS: FERROUS SULFATE 325 MG TAB PO SCH (10:49)
--- NOTE | 2022-05-10 12:03 | Progress Note ---
Assessment and Plan A: POD #1 GDM A1 Maternal obesity Asymptomatic Anemia P: Follow Routine PostOp Orders Continue Accuchecks as ordered Continue FeSO4 as ordered Subjective - Subjective Date of service: 05/10/22 Principal diagnosis: GDM, MO, GBS POS Patient reports: appetite normal, voiding normally, pain well controlled, flatus, ambulating normally [place]: doing well Objective - Vital Signs Latest vital signs: Vital Signs Temp Pulse Resp BP BP Pulse Ox Pulse Ox 05/10/22 08:20 97.7 F 90 18 115/63 100 05/10/22 07:40 100 05/10/22 06:24 20 05/10/22 04:00 98.4 F 74 18 115/79 05/10/22 01:42 20 05/10/22 00:04 98.0 F 91 H 18 120/68 100 05/09/22 20:34 20 05/09/22 20:08 98.6 F 80 18 117/61 100 05/09/22 20:00 99 05/09/22 16:26 98.7 F 80 20 108/61 99 05/09/22 13:32 97.5 F L 98 H 16 149/78 100 05/09/22 13:28 98 05/09/22 12:30 95 H 18 118/63 100 05/09/22 12:15 111 H 17 126/73 99 Intake and Output 05/09/22 05/10/22 05/10/22 22:59 06:59 14:59 Intake Total 730 200 360 Output Total 1000 1400 400 Balance -270 -1200 -40 Intake: IV 50 ANCEF/NS 1 GM/50 ML 1 gm 50 In 50 ml @ 100 mls/hr IV Q8H [facility] Rx#:[id number] Oral 440 360 Intake, Free Water 240 200 Output: Urine 1000 1400 400 Indwelling Catheter 1000 Void 1400 400 Other: Total, Intake Amount 200 360 Total, Output Amount 1000 800 400 # Voids Indwelling Catheter 2,000 Void 1 2 - Exam Breasts: Present: normal Cardiovascular: Present: Regular rate Lungs: Present: Clear to auscultation, Normal air movement Abdomen: Present: normal appearance, soft, normal bowel sounds Uterus: Present: normal, firm, fundal height below umbilicus Extremities: Present: normal Incision: Present: dry, dressed - Labs Labs: Abnormal lab results 07/12/22 Range/Units 23:07 Hgb 9.6 L (10.1-14.3) gm/dl Hct 29.2 L (30.3-42.9) %
[2022-05-11] MEDS: IBUPROFEN 800 MG TAB PO PRN ×2 (06:20→14:15)
--- NOTE | 2022-05-11 11:56 | Progress Note ---
Assessment and Plan A: POD # 2 - stable P: Replace steri strips Discharge home today Discharge instructions given Subjective - Subjective Date of service: 05/11/22 Principal diagnosis: POD # 2 Patient reports: appetite normal : doing well Objective - Vital Signs Latest vital signs: Vital Signs Temp Pulse Resp BP BP Pulse Ox Pulse Ox 05/11/22 09:15 98 05/11/22 07:42 98.1 F 72 18 110/52 96 05/11/22 06:20 98 05/11/22 03:50 98 05/11/22 01:55 98 05/11/22 00:27 98.0 F 77 18 109/67 96 05/10/22 23:10 98 05/10/22 21:20 98 05/10/22 20:05 98 05/10/22 15:54 97.9 F 85 18 108/68 99 Intake and Output 05/10/22 05/11/22 05/11/22 22:59 06:59 14:59 Intake Total 880 360 Balance 880 360 Intake: Oral 880 360 Other: Total, Intake Amount 240 120 # Voids Void 1 1 - Exam Breasts: Present: deferred Cardiovascular: Present: Regular rate Lungs: Present: Clear to auscultation Abdomen: Present: soft Vulva: both: normal Uterus: Present: normal, fundal height below umbilicus Deep Tendon Reflex Grade: Normal +2 Incision: Present: intact
--- NOTE | 2022-05-11 11:58 | Discharge Summary ---
Providers - Providers Date of Admission: 05/07/22 20:19 Date of discharge: 05/11/22 Attending physician: SALOMÓN BARCLAY Primary care physician: SALOMÓN BARCLAY Hospitalization Reason for admission: induction of labor Delivery: (for distress) Episiotomy: none Laceration: none Incision: intact Discharge diagnosis: IUP at term delivered baby: female Condition at discharge: Good Disposition: 01 HOME / SELF CARE / HOMELESS Plan - Provider Discharge Summary Activity: routine, no sex for 6 weeks, no strenuous exercise Diet: routine Instructions: routine Additional instructions: [] Smoking cessation referral if applicable(refer to patient education folder for contact #) [] Refer to [facility]'s [facility] Booklet Call your doctor immediately for: * Fever > 100.5 * Heavy vaginal bleeding ( >1 pad per hour) * Severe persistent headache * Shortness of breath * Reddened, hot, painful area to leg or breast * Drainage or odor from incision. * Keep incision clean and dry at all times and follow doctor's instructions regarding bathing/showering - Follow up plan Follow up: SALOMÓN BARCLAY MD [Primary Care Provider] - 14 Days
[2022-05-11] MEDS: FERROUS SULFATE 325 MG TAB PO SCH (14:15)
[2022-05-11 14:45] VITALS: BP 114/64
== END 2022-05-11 14:35 | disposition home or self-care (01) | DRG 766 ==
LOC: LD 20:19 → APU 05-09 09:43 → OB 05-09 12:53
PROVIDERS: ADMIT Obstetrics & Gynecology; ATTEND Obstetrics & Gynecology
PROC: 10D00Z1 Extraction of Products of Conception, Low, Open Approach (ICD-10-PCS; principal; 2022-05-09)
PROC: 10H07YZ Insertion of Other Device into Products of Conception, Via Natural or Artificial Opening (ICD-10-PCS; 2022-05-09)
PROC: 10907ZC Drainage of Amniotic Fluid, Therapeutic from Products of Conception, Via Natural or Artificial Opening (ICD-10-PCS; 2022-05-09)
PROC: 3E0T3BZ Introduction of Anesthetic Agent into Peripheral Nerves and Plexi, Percutaneous Approach (ICD-10-PCS; 2022-05-09)
DX: O24.429 Gestational diabetes mellitus in childbirth, unspecified control (principal); Z3A.40 40 weeks gestation of pregnancy; E66.01 Morbid (severe) obesity due to excess calories; O61.9 Failed induction of labor, unspecified; Z37.0 Single live birth; O99.824 Streptococcus B carrier state complicating childbirth; Z20.822 Contact with and (suspected) exposure to COVID-19; O99.214 Obesity complicating childbirth; O76 Abnormality in fetal heart rate and rhythm complicating labor and delivery; O90.81 Anemia of the puerperium
CPT/HCPCS: 36415; 59200; 76815; 76816; 82962; 85014; 85018; 85027; 86850; 86900; 86901; G0378; J3490; J0690; J1885; J2270; J2370; J2405; J2540; J2765; J3010; J3105; J7120; U0003

== ENCOUNTER 2022-06-23 11:08 | Emergency (ER) | payer MEDICAID ==
[2022-06-23 12:15] VITALS: BP 109/61
--- NOTE | 2022-06-23 16:42 | Event Note ---
ED Screening Note ED Screening Note: Patient reports open wound from her C/S incision , 2 weeks ago, dehisced wound, draining currently on antibiotics no improvement . [employer] General: Nontoxic appearing no acute distress Cardiac: Regular rate, normal heart sounds Respiratory: Normal lung sounds bilaterally no use of signal processing engineer muscles GI/-deferred due to interview area Musculoskeletal-normal inspection full range of motion Neuro-alert oriented x4. In the setting of a significantly high volume and record number of patients pre senting to the emergency department and the fact that we have a limited space to see patients we have implemented the provider in triage protocol this allows an expedited initial exam of patients that might otherwise have left without being seen or who would wait longer than usual to be seen by provider. I interviewed the patient and performed a limited physical exam. This patient is a pulled fr om the waiting room to triage room for an initial assessment of adrenal studies and then returned to the waiting room pending results of the studies. The ultimate final evaluation and disposition may be performed by another provider depending on room and provider availability.
[2022-06-23] MEDS ORDERED: MORPHINE 4 MG/1 ML INJ IV ONE (16:44)
[2022-06-23] MEDS ORDERED: ONDANSETRON 4 MG/2 ML INJ IV NR (17:00)
[2022-06-23 17:22] LABS: Hematocrit 37.7 % (30.3-42.9); Hemoglobin 12.6 gm/dl (10.1-14.3); Mean Corpuscular HGB Conc 33 % (30-34); Mean Corpuscular Volume 88 fl (79-97); Platelet Count 259 K/mm3 (140-440); Red Blood Count 4.31 M/mm3 (3.65-5.03); Red Cell Distribution Width 13.8 % (13.2-15.2)
[2022-06-23 17:38] LABS: Alanine Aminotransferase 43 units/L (7-56); Albumin 4.5 g/dL (3.9-5); Blood Urea Nitrogen 9 mg/dL (7-17); Calcium 9.7 mg/dL (8.4-10.2); Hemolysis Index 13
[2022-06-23 17:40] LABS: BUN/Creatinine Ratio 13
--- NOTE | 2022-06-23 19:18 | Emergency Department Report ---
- General Chief complaint: Wound/Laceration Stated complaint: OPEN INCISION Time Seen by Provider: 06/23/22 18:29 Source: patient Mode of arrival: Ambulatory Limitations: No Limitations - History of Present Illness Initial comments: This is a 31-year-old female 6 weeks status [facility] ED today complaining of concerns of open incision under her belly. Patient states about 2 weeks ago the incision from her C- section opened up. Patient states she followed up with [facility] twice and has been giving round of antibiotics which she is currently completing. Patient denies any fever, chills, shortness of breath, redness. Patient states she has been covering up the incision with gauze. Patient states that minimal leaking to the incision site. Patient presents to the ED for evaluation. - Related Data Home Medications Medication Instructions Recorded Confirmed Last Taken Aspirin BABY CHEW TAB 1 tab PO DAILY 04/27/22 05/09/22 05/07/22 Vitamin 1 tab PO DAILY 04/27/22 05/09/22 05/07/22 Previous Rx's Medication Instructions Recorded Last Taken Type Acetaminophen/Codeine [Tylenol 1 tab PO Q4HR PRN #20 tablet 05/11/22 Unknown Rx /Codeine # 3 tab] Allergies Allergy/AdvReac Type Severity Reaction Status Date / Time No Known Allergies Allergy Verified 06/23/22 12:16 Abscess Boil HPI - HPI Chief Complaint: Wound/Laceration Stated Complaint: OPEN INCISION Time Seen by Provider: 06/23/22 18:29 Duration: >1 Week History: No Fever, No Pain, No Purulent Drainage, No Numbness, No Foreign Body, No Previous History Home Medications: Home Medications Medication Instructions Recorded Confirmed Last Taken Aspirin BABY CHEW TAB 1 tab PO DAILY 04/27/22 05/09/22 05/07/22 Vitamin 1 tab PO DAILY 04/27/22 05/09/22 05/07/22 Previous Rx's Medication Instructions Recorded Last Taken Type Acetaminophen/Codeine [Tylenol 1 tab PO Q4HR PRN #20 tablet 05/11/22 Unknown Rx /Codeine # 3 tab] Allergies/Adverse Reactions: Allergies Allergy/AdvReac Type Severity Reaction Status Date / Time No Known Allergies Allergy Verified 06/23/22 12:16 ED Review of Systems ROS: Stated complaint: OPEN INCISION Other details as noted in HPI Comment: All other systems reviewed and negative ED Past Medical Hx - Past Medical History Hx Hypertension: No Hx Heart Attack/AMI: No Hx Congestive Heart Failure: No Hx Diabetes: No Hx Deep Vein Thrombosis: No Hx Liver Disease: No Hx Renal Disease: No Hx Sickle Cell Disease: No Hx Seizures: No Hx Asthma: No Hx COPD: No Hx HIV: No - Surgical History Hx Pacemaker: No Hx Internal Defibrillator: No - Social History Smoking Status: Never Smoker - Medications Home Medications: Home Medications Medication Instructions Recorded Confirmed Last Taken Type Aspirin BABY CHEW TAB 1 tab PO DAILY 04/27/22 05/09/22 05/07/22 History Vitamin 1 tab PO DAILY 04/27/22 05/09/22 05/07/22 History Acetaminophen/Codeine [Tylenol 1 tab PO Q4HR PRN #20 tablet 05/11/22 Unknown Rx /Codeine # 3 tab] ED Physical Exam - General Limitations: No Limitations - GI/Abdominal GI/Abdominal exam: Present: soft, other (Mild opening at 2 sites of the incision. Mild nonerythematous around, nontender, no swelling. Clear drainage noticed. No signs of infection.). Absent: distended, tenderness, guarding, mass ED Course Vital Signs 06/23/22 12:06 Temperature 98.5 F Pulse Rate 68 Blood Pressure 109/61 [Right] O2 Sat by Pulse 97 Oximetry ED Medical Decision Making - Lab Data Result diagrams: 06/23/22 17:01 06/23/22 17:01 - Medical Decision Making 31-year-old female presenting with section incision check. Incision is well-healing. No signs of cellulitis, infection or swelling. No pus drainage. Discussed incision care and wound care with patient. Discussed continued follow-up with [facility]. Discussed to continue taking her antibiotics until completed. Discussed to keep incision dry and can apply triple antibiotic as discussed. Vital signs are normal patient is in no acute distress labs are normal discussed findings with the patient patient is sent instructions. Critical care attestation.: If time is entered above; I have spent that time in minutes in the direct care of this critically ill patient, excluding procedure time. ED Disposition Clinical Impression: Encounter for postoperative wound check Disposition: HOME / SELF CARE / HOMELESS Is pt being admited?: No Does the pt Need Aspirin: No Condition: Stable Instructions: Wound Infection, [id number], Incision Care, Adult, [id number] Additional Instructions: Make sure to follow up with the [facility] as discussed. Take all your medications as you've been prescribed by your [facility]. If you have any worsening symptoms or develop new symptoms please return to ED immediately. Referrals: [facility] [Provider Group] - 3-5 Days Forms: Work/School Release Form(ED) Time of Disposition: 19:17
== END 2022-06-23 19:40 | disposition home or self-care (01) ==
LOC: ED 11:08
DX: Z48.816 Encounter for surgical aftercare following surgery on the genitourinary system (principal); Z79.899 Other long term (current) drug therapy
CPT/HCPCS: 36415; 80053; 82140; 84703; 85027; 87040; 99283